=== PATIENT | female | born 1975 | race Caucasian/White ===

== ENCOUNTER → 2017-01-07 | Outpatient (CLI) | payer MEDICARE, OTHER ==
--- NOTE | 2017-01-07 07:35 | MR ---
MRI CERVICAL SPINE: CLINICAL HISTORY: Cervical spine radiculitis and DDD per order. Headache with neck pain causing right arm pain or weakness for 3 years per patient. TECHNIQUE: Multiplanar, multisequence imaging of the cervical spine is performed without IV contrast. COMPARISON: None. FINDINGS: Sagittal images of the cervical spine show the craniocervical junction to appear within nor mal limits. The cervical and upper thoracic spinal cord is normal in caliber and signal. There is mi ld AP diameter lost due to anterior indentation from disc herniation C6-C7 level on sagittal image 6. Vertebral alignment is anatomic. The vertebral body and heights are normal. There is mild disc spac e narrowing with posterior disc herniations effacing anterior thecal sac at C5-C6 and C6-C7 level. Th e bone marrow signal intensity is within normal limits. No significant spurring is seen. Mild minimal mucosal thickening involving visualized wall of the inferior right sphenoid sinus is noted on sagitt al image 12. Axial images show the C2-C3 level to appear within normal limits. Axial images at C3-C4 level show mild bilateral neural foraminal narrowing due to mild uncovertebral facet degenerative changes bilaterally. Axial images at C4-C5 level show uncovertebral facet degenerative changes bilaterally causing mild bi lateral neural foraminal narrowing. Spinal canal is preserved. Axial images at C5-C6 level show broad-based posterior disc protrusion effacing anterior thecal sac u p to ventral surface of spinal cord and causing moderate right and mild to moderate left-sided neural foraminal narrowing near axial image 23. Axial images at C6-C7 level show broad-based posterior disc protrusion effacing anterior thecal sac u p to ventral surface of spinal cord which is slightly flattened and causing mild to moderate left mark ed neural foraminal narrowing. Right-sided neural foramen is patent. Axial images at C7-T1 level are felt within normal limits. There is 1 cm T2 hyperintense lesion lateral left neck likely within lateral thyroid gland on axial i mage 17 that warrants follow-up at level of C6 vertebra. Suspected thyroid gland is somewhat small in size. IMPRESSION: 1. Multilevel degenerative changes in the cervical spine as detailed above most prominent at C5-C6 an d C6-C7 levels. 2. Suspected 1 cm left thyroid nodule in small size thyroid gland, follow-up thyroid ultrasound advis ed to further evaluate.
== END | disposition home or self-care (01) ==
LOC: RADMRIMAIN 06:34
PROVIDERS: ATTEND Pain Medicine Interventional Pain Medicine
DX: M47.22 Other spondylosis with radiculopathy, cervical region (principal)
CPT/HCPCS: 72141

== ENCOUNTER → 2018-05-08 | Outpatient (CLI) | payer MEDICARE, OTHER ==
--- NOTE | 2018-05-08 18:20 | CT ---
EXAMINATION TYPE: CT lumbar spine wo con DATE OF EXAM: 05/08/2018 10:16 AM COMPARISON: MR lumbar spine 06/01/2014 HISTORY: Low back pain CT DLP: 1883.8 mGycm Automated exposure control for dose reduction was used. TECHNIQUE: Unenhanced CT of the lumbar spine was performed. Bone and soft tissue window settings are submitted as well as coronal and sagittal reconstructions. FINDINGS: There is a very mild (grade 1) anterolisthesis of L3 on L4. There is surgical fixation of t he L4-S1 vertebral bodies with pedicular screws and fixation rods appearing appropriately placed. No hardware fracture is identified. Vertebral body heights are maintained. No evidence of acute fracture of the lumbar spine. Surgical resection of posterior elements at L4 and L5 are seen. There is a fat attenuated multilobulated lesion of the left adrenal gland appearing at the 2.7 cm. 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 Gallbladder is surgically absent. L1-L2: Normal disc space height. No disc herniation protrusion or central stenosis. No facet joint arthropathy. No evidence for foraminal encroachment. L2-L3: Normal disc space height. No disc herniation protrusion or central stenosis. No facet joint arthropathy. No evidence for foraminal encroachment. L3-L4: There is slight disc uncovering from the mild anterolisthesis. There is also facet arthropathy and a broad-based disc bulge creating mild bilateral neural foraminal narrowing and mild spinal julia l stenosis. L4-L5: A very small broad-based disc bulge is seen without spinal canal stenosis nor neural foraminal narrowing. Postsurgical changes with resection of the posterior elements is present. L5-S1: There is a left lateral posterior osteophyte projecting from the L5 vertebrae into the neural foramen creating severe left neural foraminal narrowing in combination with facet arthropathy. There is no right neural foraminal narrowing or spinal canal stenosis. Resection of the posterior elements is seen. IMPRESSION: 1. Posterior osteophyte projecting from the L5 vertebral body into the neural foramen creating severe left neural foraminal narrowing in combination with facet arthropathy. 2. No evidence of hardware fracture or hardware malalignment. 3. Grade 1 anterolisthesis of L3 on L4 with disc uncovering and a broad-based disc bulge resulting in mild bilateral neural foraminal narrowing and mild spinal canal stenosis.
== END | disposition home or self-care (01) ==
LOC: RADCTMAIN 09:13
PROVIDERS: ATTEND Psychiatry & Neurology Neurology
DX: M99.73 Connective tissue and disc stenosis of intervertebral foramina of lumbar region (principal); M43.16 Spondylolisthesis, lumbar region; M48.061 Spinal stenosis, lumbar region without neurogenic claudication; M46.96 Unspecified inflammatory spondylopathy, lumbar region
CPT/HCPCS: 72131

== ENCOUNTER → 2018-06-21 | Outpatient (CLI) | payer MEDICARE, OTHER | END | disposition home or self-care (01) | LOC: LABWHC1 11:28 | PROVIDERS: ATTEND Psychiatry & Neurology Pain Medicine | DX: M79.7 Fibromyalgia (principal); G89.4 Chronic pain syndrome; Z79.899 Other long term (current) drug therapy ==

== ENCOUNTER → 2018-06-23 | Outpatient (CLI) | payer MEDICARE, OTHER ==
[2018-06-23 12:54] LABS: Appearance,Urine Cloudy (Clear); Bacteria,Urine Rare /hpf; Bilirubin,Urine Negative (Negative); Blood,Urine Small (Negative); Color,Urine Yellow; Glucose,Urine (UA) 1+ (Negative); Ketones,Urine Negative (Negative); Leukocyte Esterase,Urine Negative (Negative); Mucus,Urine Few /hpf; Nitrite,Urine Negative (Negative); Protein,Urine Trace (Negative); RBC,Urine 3 /hpf (0-5); Specific Gravity,Urine 1.021 (1.001-1.035); Squamous Epithelial Cell,Urine 4 /hpf (0-4); Urobilinogen,Urine <2.0 mg/dL (<2.0); WBC,Urine 2 /hpf (0-5)
[2018-06-23 13:35] LABS: HCT 43.9 % (34.0-46.0); HGB 14.6 gm/dL (11.4-16.0); MCH 32.7 pg (25.0-35.0); MCHC 33.3 g/dL (31.0-37.0); MCV 98.2 fL (80.0-100.0); Mean Platelet Volume 7.5; Platelet Count 291 k/uL (150-450); RBC 4.47 m/uL (3.80-5.40); RDW 12.5 % (11.5-15.5); WBC 10.3 k/uL (3.8-10.6)
[2018-06-23 15:44] LABS: Erythrocyte Sedimentation Rate 13 mm/hr (0-20)
[2018-06-23 19:12] LABS: Albumin 4.4 g/dL (3.80-4.90); Anion Gap 8.4 mmol/L (4.00-12.00); C Reactive Protein 0.4 mg/dL (0.0-0.8); Calcium 9.2 mg/dL (8.7-10.3); Carbon Dioxide 23.6 mmol/L (21.6-31.8); Globulin 2.2 g/dL (2.1-3.7); Magnesium 1.7 mg/dL (1.5-2.4); Potassium 3.9 mmol/L (3.5-5.5); Total Bilirubin 0.4 mg/dL (0.3-1.2); Total Protein 6.6 g/dL (6.2-8.2)
[2018-06-23 20:18] LABS: Hemoglobin A1C 6.8 % (4.0-6.0)
[2018-06-23 20:30] LABS: Cyclic Citrullinated Pep IgG NEGATIVE (NEGATIVE); DNA Double-Stranded NEGATIVE (NEGATIVE); RNP <0.2 AI; Scleroderma SC-70 Ab <0.2 AI
[2018-06-25 14:01] LABS: Histone Antibody 0.5 UNITS (<1.0)
== END | disposition home or self-care (01) ==
LOC: LABWHC1 11:40
PROVIDERS: ATTEND Psychiatry & Neurology Pain Medicine
DX: G89.4 Chronic pain syndrome (principal); M79.7 Fibromyalgia; Z79.899 Other long term (current) drug therapy
CPT/HCPCS: 36415; 80053; 81001; 82306; 82550; 83036; 83516; 83519; 83735; 84207; 84425; 84446; 84590; 84591; 84597; 85027; 85652; 86038; 86140; 86200; 86225; 86235

== ENCOUNTER 2018-11-01 19:32 | Emergency (ER) | payer MEDICARE, OTHER ==
[2018-11-01 19:37] VITALS: BP 147/95; PULSE 120; RESP 18; TEMP 98.2
[2018-11-01] MEDS ORDERED: methylPREDNISolone SOD SUCCI 125 MG/2 ML VIAL IM ONE (20:04)
[2018-11-01] MEDS ORDERED: MORPHINE SULFATE 4 MG/ML SYRINGE IM STA (20:04)
[2018-11-01] MEDS ORDERED: CYCLOBENZAPRINE 10MG STARTER 3 TAB BTL PO STA (20:05)
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
--- NOTE | 2018-11-01 21:42 | XR ---
EXAMINATION TYPE: XR lumbar spine 2 or 3V DATE OF EXAM: 11/01/2018 CLINICAL HISTORY: Fall injury today with low back pain. TECHNIQUE: Frontal and lateral images of the lumbar spine are obtained. COMPARISON: CT lumbar spine May 08, 2018 FINDINGS: There are 5 lumbar type vertebral bodies redemonstrated. The lumbar spine shows stable al ignment without evidence of acute fracture or dislocation. There is slight grade 1 anterolisthesis of L3 on L4 redemonstrated. There is persistent mild to moderate disc space narrowing at L5-S1 level. T here are persistent posterior intrapedicular rods and screws bilaterally at L4-S1 levels. Vertebral b deborah heights and disc space heights otherwise are maintained. Cholecystectomy clips in the overlying s oft tissue are redemonstrated. IMPRESSION: No acute fracture or dislocation is seen in the lumbar spine.
[2018-11-01] MEDS ORDERED: ACET/COD 300 MG/30 MG STARTER PACK 6 TAB BTL PO STA (21:43)
== END 2018-11-01 21:50 | disposition home or self-care (01) ==
LOC: EC 19:32
DX: M54.42 Lumbago with sciatica, left side (principal); J44.9 Chronic obstructive pulmonary disease, unspecified; F41.9 Anxiety disorder, unspecified; F17.200 Nicotine dependence, unspecified, uncomplicated; Z98.890 Other specified postprocedural states; Z98.51 Tubal ligation status; Z79.899 Other long term (current) drug therapy; Z79.891 Long term (current) use of opiate analgesic; Z88.5 Allergy status to narcotic agent; Z88.6 Allergy status to analgesic agent; W54.1XXA Struck by dog, initial encounter; W18.39XA Other fall on same level, initial encounter; Y92.017 Garden or yard in single-family (private) house as the place of occurrence of the external cause; Y93.89 Activity, other specified
CPT/HCPCS: 72100; 99284; 96372 ×2; J2270; J2930

== ENCOUNTER 2019-01-20 19:53 | Emergency (ER) | payer MEDICARE, OTHER ==
--- NOTE | 2019-01-20 22:47 | US ---
EXAM: US Right Breast, Limited CLINICAL HISTORY: Pain TECHNIQUE: Limited real time ultrasound of the right breast with image documentation, including axilla when performed. COMPARISON: No relevant prior studies available. FINDINGS: Right breast: Heterogeneous retroareolar collection measuring 6.4 cm x 3.5 x 2.4 cm. Has poorly defined margins . This of uncertain etiology. The possibility of an abscess is not excluded. There is minimal rounding vascularity but no significant hyperemia suggested. IMPRESSION: Findings suspicious for retroareolar abscess. Other etiology is not excluded ASSESSMENT: BI-RADS 3
[2019-01-20 23:39] VITALS: BP 147/92; PULSE 85; RESP 18; TEMP 98.1
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
== END 2019-01-21 00:29 | disposition home or self-care (01) ==
LOC: EC 19:53
DX: N64.4 Mastodynia (principal); J44.9 Chronic obstructive pulmonary disease, unspecified; I10 Essential (primary) hypertension; F17.200 Nicotine dependence, unspecified, uncomplicated; Z79.891 Long term (current) use of opiate analgesic; Z79.899 Other long term (current) drug therapy; Z88.5 Allergy status to narcotic agent; Z88.6 Allergy status to analgesic agent
CPT/HCPCS: 99283

== ENCOUNTER → 2019-01-28 | Outpatient (CLI) | payer MEDICARE, OTHER ==
[2019-01-28 09:38] VITALS: BP 135/87; PULSE 84; RESP 18; TEMP 98.3; BMI 40.8
--- NOTE | 2019-01-28 10:17 | P.GSHP ---
History of Present Illness H&P Date: 01/28/19 Chief Complaint: swelling right breast The patient is a 43 year old white female who noted a lump in her breast 01-20-19. She states it has increased in size and is more tender. He has no fever or chills. She had an ultrasound performed on , this revealed a heterogeneous actual areola collection measuring 6.4-3.5 cm with poorly defined margins. The possibility of an abscess was not excluded. She denies any real trauma to this area. Has no nipple discharge or changes. Increase has no skin changes of concern. The patient 01-25-19 complaining of some swelling in her right upper extremity of her elbow. The patient had a ultrasound performed which did not reveal an upper extremity DVT. The swelling has since subsided. She was started on an antibiotic, Keflex. Does have a sunburn on her upper extremities at this time. She has not had any breast trauma specifically nor has she had any signs of her breasts. She does have a tattoos on breast which were placed in 2008 Family History: 1. mother: cervical 2. patient cervical 3. maternal aunt: breast Hormonal history: Menarche:8 1 stillorn, breast fed: no, first born at 18 periods irregular BCP: none Hormones: none surgical history: 1. gallbaldder 2. tubals 3. 4. ablation 5. LEEP 6. most of teeth pulled 7. back surgery Medical history: 1. asthma 2. depression Social History: smoke: 1/PPD 32 year alcohol: none drugs: none - Constitutional Constitutional: Reports sweats - EENT Eyes: denies blurred vision, denies pain Ears: deny: decreased hearing, tinnitus Ears, nose, mouth and throat: Denies headache, Denies sore throat - Breasts Breasts: bilateral: as per HPI - Cardiovascular Cardiovascular: Reports irregular heart beat - Respiratory Comment: smoker, asthma - Gastrointestinal Gastrointestinal: Denies abdominal pain, Denies diarrhea, Denies nausea, Denies vomiting - Genitourinary (Female) Genitourinary: Denies dysuria, Denies hematuria - Menstruation Menstruation: Reports cycle variable - Musculoskeletal Comment: arthritis Musculoskeletal: Reports myalgias - Integumentary Comment: multiple tattoos - Neurological Comment: tingling in fingers - Psychiatric Psychiatric: Reports depression - Endocrine Endocrine: Reports weight change - Hematologic/Lymphatic Comment: none - Allergic/Immunologic Allergic/Immunologic: Reports as per HPI Past Medical History Past Medical History: Asthma, COPD Additional Past Medical History / Comment(s): arrhythmia, History of Any Multi-Drug Resistant Organisms: None Reported Past Surgical History: Back Surgery, Tubal Ligation Past Psychological History: Anxiety Smoking Status: Current every day smoker Past Alcohol Use History: None Reported Past Drug Use History: None Reported Medications and Allergies Home Medications Medication Instructions Recorded Confirmed Type Cephalexin [Keflex] 500 mg PO Q6HR #28 cap 01/25/19 01/28/19 Rx Melatonin 5 mg PO HS 01/25/19 01/28/19 History diphenhydrAMINE [Benadryl] 25 mg PO HS 01/25/19 01/28/19 History Allergies Allergy/AdvReac Type Severity Reaction Status Date / Time ibuprofen [From Motrin] Allergy Rash/Hives Verified 01/28/19 09:38 morphine Allergy migraines Verified 01/28/19 09:38 Surgical - Exam Vital Signs Temp Pulse Resp BP Pulse Ox 98.3 F 84 18 135/87 94 L 01/28/19 09:32 01/28/19 09:32 01/28/19 09:32 01/28/19 09:32 01/28/19 09:32 BMI 40.9 - General obese - Eyes normal ocular movement - ENT no hearing loss, no congestion - Neck no masses, trachea midline - Respiratory normal expansion, normal respiratory effort, clear to auscultation - Cardiovascular Rhythm: regular Heart Sounds: normal: S1, S2 - Abdomen Abdomen: soft, non tender, no guarding, no rigid, no rebound - Integumentary multiple tattoos - Neurologic no disoriented, no combative - Musculoskeletal normal gait, normal posture - Psychiatric oriented to time, oriented to person, oriented to place, speech is normal, memory intact breast exam: Breasts: Right breast: Multi-positional exam very large breast D, there is an area of increased swelling posterior to the nipple areola complex, the patient has no other dominant masses or nodules of concern, no erythema, she does have tattoos on both breast Right axilla: No adenopathy of concern Left breast: Multi-positional exam fibrocystic changes, no dominant masses or nodules of concern Left axilla: No adenopathy of concern Results Ultrasound reviewed Assessment and Plan Assessment: Impression: 1. Mass right breast 2. Fibrocystic breast changes 3. Sunburn 4. Asthma 5. Prior history of depression 6. Borderline arthritis 7. obesity . Personal history of cervical cancer 9. Family history of cancer 10. Recent swelling of the right upper extremity The patient was ultrasound was reviewed with radiology, there appears to be fluid collection posterior to the nipple areola complex. It was recommended that we attempt an aspiration of this. This appears to be purulent fluid consider drainage in the operating room. The patient understands the risks and benefits and wishes to proceed. She has no longer swelling of the right upper extremity. Her most recent ultrasound of the right upper extremity vasculature did not reveal a DVT. Plan: 1. Attempted aspiration of the right breast 2. Medical management of medical problems 3. Continue antibiotic Cc: Dr. Peralta
--- NOTE | 2019-01-28 10:31 | P.PCN ---
Date of Procedure: 01/28/19 Preoperative Diagnosis: Mass posterior right nipple areola complex Postoperative Diagnosis: same Procedure(s) Performed: Drainage of fluid collection posterior to the right nipple complex Anesthesia: local Surgeon: Vee Alexander Estimated Blood Loss (ml): 0 Condition: stable Disposition: same day Indications for Procedure: mass right breast Operative Findings: sero-purolent fluid Description of Procedure: The patient is a 43-year-old white female who presents with an area of increased mass posterior to the right nipple areola complex. There is a remote history of questionable trauma however it appears that the trauma simply brought the area to the patient's attention and she noticed a lump in this region. Ultrasound was consistent with hematoma/abscess. Impression was had with the patient regarding aspiration the patient wished an attempt at this. Risk and benefits were discussed with the patient and her . The area of concern was prepped using Betadine. 1% lidocaine was used to anesthetize the area of concern. An 18-gauge needle on a 20 mL syringe was inserted into the mass. 5 mL of seropurulent fluid was obtained. The fluid was sent for cultures. The patient will return next week. She is presently on Keflex.
== END ==
LOC: WWCWWP 09:19
PROVIDERS: ATTEND Surgery
DX: N64.9 Disorder of breast, unspecified (principal)
CPT/HCPCS: 87070; 87075; 87205

== ENCOUNTER 2019-02-01 07:51 | Day surgery (SDC) | payer MEDICARE, OTHER ==
[~2019-02-01 07:51] MED LIST: DEXAMETHASONE SOD PHOSPHATE 10 MG/ML 1 ML VIAL IV ONE; HEPARIN SODIUM,PORCINE 5,000 UNIT/ML 1 ML VIAL SQ ONE; LACTATED RINGERS 1,000 ML IV SCH; MIDAZOLAM 2 MG/2 ML VIAL IV PRN; ONDANSETRON 4 MG/2 ML VIAL IVP ONE; Pre Op ABX Message 1 EACH MISC MISCELLANE ONE; SCOPOLAMINE 1.5MG/72HR PATCH TRANSDERM ONE; fentaNYL (PF) 50 MCG/ML 2 ML AMP IV PRN
[2019-02-01] MEDS ORDERED: HEPARIN SODIUM,PORCINE 5,000 UNIT/ML 1 ML VIAL SQ ONE (09:53)
[2019-02-01] MEDS ORDERED: ceFAZolin 2 GM in SODIUM CHLORIDE 0.9% 100 ML IVPB ONE (09:54)
[2019-02-01] MEDS ORDERED: metroNIDAZOLE-NS PMX 500 MG in SALINE 1 100ML.BAG IVPB STA (09:55)
[2019-02-01] MEDS ORDERED: ceFAZolin IN SWFI 2 GM/20 ML SYRINGE IVP STA (09:56)
[2019-02-01] MEDS ORDERED: KETAMINE 10 MG/ML 20 ML VIAL ONE (10:13)
[2019-02-01] MEDS ORDERED: MIDAZOLAM 2 MG/2 ML VIAL ONE (10:13)
[2019-02-01] MEDS ORDERED: LIDOCAINE 1% INJ 10MG/ML (20 ML MDV) ONE (10:13)
[2019-02-01] MEDS ORDERED: SUCCINYLCHOLINE CHLORIDE 100 MG/5 ML SYR IV ONE (10:13)
[2019-02-01] MEDS ORDERED: PROPOFOL 10 MG/ML 20 ML VIAL IV ONE (10:13)
[2019-02-01] MEDS ORDERED: fentaNYL (PF) 50 MCG/ML 2 ML AMP ONE (10:13)
[2019-02-01] MEDS ORDERED: ALBUTEROL INHALER 60 PUFF/8 GM INHALER INHALATION ONE (10:13)
[2019-02-01] MEDS ORDERED: SODIUM CHLORIDE 0.9% 50 ML with ceFAZolin 2,000 MG IV ONE ×2 (10:17)
--- NOTE | 2019-02-01 11:17 | P.OP ---
Date of Procedure: 02/01/19 Preoperative Diagnosis: Abscess right breast Postoperative Diagnosis: Same Procedure(s) Performed: Incision and drainage abscess right breast Anesthesia: MAU Surgeon: Vee Alexander Estimated Blood Loss (ml): 5 IV fluids (ml): 500 Pathology: other (Wall of the abscess cavity) Condition: stable Disposition: same day Indications for Procedure: Abscess right breast posterior to the nipple areolar complex Operative Findings: Large abscess cavity approximately 8 x 9 cm Description of Procedure: The patient is a 43-year-old white female who presented to the emergency department with a fullness in her right breast. At that time she had no fever and no drainage from the breast. There was concern that she may have a hematoma associated some history of trauma to the area versus an abscess. She was subsequently seen in the office. In the office and aspiration did reveal some purulence was sent for cultures and she was started on antibiotics. She presents today with persistent fullness in the area for incision and drainage. The patient was given a dose of IV Kefzol as well as IV Flagyl. Risks and benefits of procedure were clearly discussed with the patient and her . They wish to proceed with I&D in the operating room. The patient was taken to the operative suite and following induction of anesthesia incision was made in the circumareolar region. Dissection was performed down to the large plus which revealed an abscess cavity. The cavity was approximately 3 cm x 2 cm. There is minimal purulent fluid in the cavity, cultures were obtained. 3 L of warm saline were used to irrigate the area. No active bleeding was identified. The edge of the incision is a small vessel and this was cauterized using the electrocautery device. Following this the wound was packed using moist Kerlix. The patient tolerated the procedure in stable condition. She will be discharged home on lax and Flagyl. Infectious disease consult will be obtained. The patient will be recommended to follow with me in the office tomorrow for packing change.
--- NOTE | 2019-02-01 11:20 | P.DS ---
Providers Attending physician: Vee Alexander Primary care physician: Keyon Peralta Plan - Discharge Summary New Discharge Prescriptions: No Action diphenhydrAMINE [Benadryl] 25 mg PO HS Melatonin 5 mg PO HS Cephalexin [Keflex] 500 mg PO Q6HR #28 cap Discharge Medication List Cephalexin [Keflex] 500 mg PO Q6HR #28 cap 01/25/19 [Rx] Melatonin 5 mg PO HS 01/25/19 [History] diphenhydrAMINE [Benadryl] 25 mg PO HS 01/25/19 [History] Follow up Appointment(s)/Referral(s): Vee Alexander MD [STAFF PHYSICIAN] - 1-2 Days Activity/Diet/Wound Care/Special Instructions: do not drive today may shower after 24 hours Discharge Disposition: HOME WITH HOME HEALTH SERVICES
[2019-02-01] MEDS ORDERED: HYDROmorphone 1 MG/ML 1 ML SYRINGE IVP ONE ×5 (11:30→12:18)
[2019-02-01 11:52] VITALS: TEMP 98.1
[2019-02-01] MEDS ORDERED: MEPERIDINE 50 MG/ML SYRINGE IVP ONE (11:56)
[2019-02-01 12:40] VITALS: RESP 16
[2019-02-01 13:41] VITALS: BP 116/78; PULSE 88
== END 2019-02-01 14:08 | disposition home health service (06) ==
LOC: OR 07:51
PROVIDERS: ATTEND Surgery
DX: N61.1 Abscess of the breast and nipple (principal); L92.9 Granulomatous disorder of the skin and subcutaneous tissue, unspecified; F32.9 Major depressive disorder, single episode, unspecified; J44.9 Chronic obstructive pulmonary disease, unspecified; I49.9 Cardiac arrhythmia, unspecified; F41.9 Anxiety disorder, unspecified; F17.210 Nicotine dependence, cigarettes, uncomplicated; M19.90 Unspecified osteoarthritis, unspecified site; E66.9 Obesity, unspecified; Z68.41 Body mass index [BMI] 40.0-44.9, adult; Z90.49 Acquired absence of other specified parts of digestive tract; Z98.51 Tubal ligation status; Z97.2 Presence of dental prosthetic device (complete) (partial); Z79.899 Other long term (current) drug therapy; Z88.6 Allergy status to analgesic agent; Z88.5 Allergy status to narcotic agent
CPT/HCPCS: 81025; 88304; 87070; 87205; 87075; 10060; J2250; J1644; J1100; J2175; J2405; J0690; J2001; J3010; J1170; J0330; J2704

== ENCOUNTER → 2019-02-02 | Outpatient (CLI) | payer MEDICARE, OTHER ==
[2019-02-02 15:16] VITALS: BP 132/81; PULSE 75; RESP 18; TEMP 98.1; BMI 39.4
--- NOTE | 2019-02-02 15:25 | P.PN ---
Progress Note - Text Progress Note Date: 02/02/19 Patient is postop day #1 I&D of right breast abscess. She presents for packing to be changed. Although she has tenderness at the site she has no fever no chills no erythema of concern Lungs: Wheezing at the bases Heart: S1-S2 Incision: clean and dry, Packing was changed, there is no evidence of any purulence No cellulitis Impression: 1. Patient doing well postop day #1 I&D of abscess right breast 2. nicotine dependance We have discussed with the patient again the importance of stopping smoking. She understands this and is trying to do so. Plan: 1. was taught how to change the packing patient left packing changed daily 2. Home health care will be visiting the patient to help with any concerns 3. Continue antibiotics 4. follow up in one week CC: Dr. Peralta
== END | disposition home or self-care (01) ==
LOC: WWCWWP 14:32
PROVIDERS: ATTEND Surgery
DX: Z53.9 Procedure and treatment not carried out, unspecified reason (principal)

== ENCOUNTER → 2019-02-10 | Outpatient (CLI) | payer MEDICARE, OTHER ==
[2019-02-10 12:05] VITALS: BP 142/92; PULSE 76; RESP 18; TEMP 98; BMI 40.8
--- NOTE | 2019-02-10 12:23 | P.PN ---
Progress Note - Text Progress Note Date: 02/10/19 Patient status post I&D right breast abcess on 01-28-19. She is doing well at this time. She did develop a yeast infection in her groins for which Diflucan is been ordered. She has no problems with any fever or chills. No erythema in the breast. She is doing well. Examination of the breasts reveals the area of incision is clean and dry there is no erythema Packing was changed minimal drainage Examination of the groin area does reveal what appears to be a yeast infection Impression: 1. Resolving abscess right breast 2. Increased infection groin area 2. Patient has completed a course of Keflex and Flagyl Plan: 1. Continue packing seems 2. Diflucan 3. Follow-up in 2 weeks CC: Dr. Peralta
== END | disposition home or self-care (01) ==
LOC: WWCWWP 11:53
PROVIDERS: ATTEND Surgery
DX: Z53.9 Procedure and treatment not carried out, unspecified reason (principal)

== ENCOUNTER → 2019-02-25 | Outpatient (CLI) | payer MEDICARE, OTHER ==
[2019-02-25 15:49] VITALS: BP 139/95; PULSE 111; RESP 20; TEMP 98.5; BMI 39.4
--- NOTE | 2019-02-25 16:01 | P.PN ---
Subjective Progress Note Date: 02/25/19 Patient status post I&D right breast abcess on 01-28-19. She is doing well at this time. She did develop a yeast infection in her groins for which Diflucan was ordered. She has no problems with any fever or chills. No erythema in the breast. She is doing well. Area of packing has decreased. After the Diflucan the groin infection has resolved. Physical exam: Lungs: Clear Heart: Regular rate and rhythm Right breast: Packing removed area is clean and dry Impression: 1. Resolving abscess cavity right breast 2. Resolved according infection Plan: 1. Continue packing 2. Follow-up in 1 month 3. Bilateral mammogram after follow-up Cc: Objective - Vital Signs Vital signs: Vital Signs Temp 98.5 F 02/25/19 15:42 Pulse 111 H 02/25/19 15:42 Resp 20 02/25/19 15:42 BP 139/95 02/25/19 15:42 Pulse Ox 92 L 02/25/19 15:42 Intake & Output 02/24/19 02/25/19 02/25/19 18:59 06:59 18:59 Weight 104.326 kg
== END | disposition home or self-care (01) ==
LOC: WWCWWP 14:54
PROVIDERS: ATTEND Surgery
DX: Z53.9 Procedure and treatment not carried out, unspecified reason (principal)

== ENCOUNTER → 2019-04-14 | Outpatient (CLI) | payer MEDICARE, OTHER ==
[2019-04-14 16:07] VITALS: BP 120/83; PULSE 87; RESP 18; TEMP 98.3; BMI 39.1
--- NOTE | 2019-04-14 16:25 | P.PN ---
Progress Note - Text Progress Note Date: 04/14/19 Patient status post I&D right breast abcess on 01-28-19. She is doing well at this time. She did develop a yeast infection in her groins for which Diflucan was ordered this has completely resolved. She has no problems with any fever or chills. No erythema in the breast, she does have some intermittent shooting pain in the location where the abscess was located. She is doing well. There was no longer open her able to be packed. Physical exam: Lungs: Clear Heart: Regular rate and rhythm Right breast: The area of the abscess is now healed over, fibrocystic changes noted no dominant mass or nodule of concern, the right breast has some nipple discharge which is creamy in nature Right axilla: No adenopathy of concern Left breast: Multiple positional exam no dominant mass or notches of concern Left axilla: No adenopathy of concern Impression: 1. Resolved abscess right breast 2. Persistent creamy discharge right nipple with palpation Plan 1. Bilateral mammogram 2. Follow-up after mammogram CC: DR. Peralta
== END ==
LOC: WWCWWP 15:26
PROVIDERS: ATTEND Surgery
DX: N64.52 Nipple discharge (principal)
CPT/HCPCS: 87070; 87205

== ENCOUNTER → 2019-04-19 | Outpatient (CLI) | payer MEDICARE, OTHER ==
[2019-04-19 11:48] VITALS: BP 141/86; PULSE 93; RESP 18; TEMP 98.2; BMI 36.6
--- NOTE | 2019-04-19 12:26 | P.PN ---
Subjective Progress Note Date: 04/19/19 Nadia is a 43-year-old white female who is status post incision and drainage of an area of abscess behind the nipple areolar complex on 72. She has done well until recently when she had some increased drainage from the area and was seen in the office. The incision for the I&D has healed over but she had some milky substance draining from the nipple. Cultures were obtained and these revealed gram-positive cocci. The patient states that since she was seen last week she has some fullness which is increased behind the nipple areolar complex. She has not had any fever or chills. Family History: 1. mother: cervical 2. patient cervical 3. maternal aunt: breast Hormonal history: Menarche:8 1 stillorn, breast fed: no, first born at 18 periods irregular BCP: none Hormones: none surgical history: 1. gallbaldder 2. tubals 3. 4. ablation 5. LEEP 6. most of teeth pulled 7. back surgery Medical history: 1. asthma 2. depression Social History: smoke: 1/PPD 32 year alcohol: none drugs: none - Constitutional Constitutional: Reports sweats - EENT Eyes: denies blurred vision, denies pain Ears: deny: decreased hearing, tinnitus Ears, nose, mouth and throat: Denies headache, Denies sore throat - Breasts Breasts: bilateral: as per HPI - Cardiovascular Cardiovascular: Reports irregular heart beat - Respiratory Comment: smoker, asthma - Gastrointestinal Gastrointestinal: Denies abdominal pain, Denies diarrhea, Denies nausea, Denies vomiting - Genitourinary (Female) Genitourinary: Denies dysuria, Denies hematuria - Menstruation Menstruation: Reports cycle variable - Musculoskeletal Comment: arthritis Musculoskeletal: Reports myalgias - Integumentary Comment: multiple tattoos - Neurological Comment: tingling in fingers - Psychiatric Psychiatric: Reports depression - Endocrine Endocrine: Reports weight change - Hematologic/Lymphatic Comment: none - Allergic/Immunologic Allergic/Immunologic: Reports as per HPI Past Medical History Past Medical History: Asthma, COPD Additional Past Medical History / Comment(s): arrhythmia, History of Any Multi-Drug Resistant Organisms: None Reported Past Surgical History: Back Surgery, Tubal Ligation Past Psychological History: Anxiety Smoking Status: Current every day smoker Past Alcohol Use History: None Reported Past Drug Use History: None Reported Medications and Allergies Home Medications Medication Instructions Recorded Confirmed Type Melatonin 5 mg PO HS 01/25/19 01/28/19 History diphenhydrAMINE [Benadryl] 25 mg PO HS 01/25/19 01/28/19 History Allergies Allergy/AdvReac Type Severity Reaction Status Date / Time ibuprofen [From Motrin] Allergy Rash/Hives Verified 01/28/19 09:38 morphine Allergy migraines Verified 01/28/19 09:38 Objective - Vital Signs Vital signs: Vital Signs Temp 98.2 F 04/19/19 11:44 Pulse 93 04/19/19 11:44 Resp 18 04/19/19 11:44 BP 141/86 04/19/19 11:44 Pulse Ox 95 04/19/19 11:44 Intake & Output 04/18/19 04/19/19 04/19/19 18:59 06:59 18:59 Weight 96.615 kg - Exam BMI 36.6 - Constitutional General appearance: Present: obese - EENT Eyes: Present: EOMI ENT: Present: hearing grossly normal - Neck Neck: Present: normal ROM - Respiratory Respiratory: bilateral: CTA - Cardiovascular Rhythm: regular Heart sounds: normal: S1, S2 - Integumentary Integumentary: Present: normal turgor - Psychiatric Psychiatric: Present: A&O x's 3, appropriate affect, intact judgment & insight - Additional findings Additional findings: Breasts: Examination of the periareolar area reveals some fullness which is approximately 3 cm in size posterior to the nipple areolar complex more on the medial aspect of the breast The patient continues to have some milky drainage from the nipple complex Assessment and Plan Assessment: Impression: 1. Increase fullness behind right nipple area complex with some creamy drainage from the right nipple 2. Questionable recurrent abscess right breast 3. Asthma 4. Depression 5. Smoking one pack per day for 32 years Plan: 1. Patient was given the option of attempted aspiration of the area and starting any antibiotics versus surgical I&D however at this time there is not a definite lesion that would benefit from going to the operating room 2. Ultrasound of the area of concern to see if there is a loculated collection of fluid 3. Patient at this time does not want any surgical intervention if it can be avoided and does not want to have this aspirated therefore start the patient on antibiotics and did an ultrasound. Patient understands the kids where she should come to the emergency room. DR. Peralta
== END | disposition home or self-care (01) ==
LOC: WWCWWP 11:32
PROVIDERS: ATTEND Surgery
DX: Z53.9 Procedure and treatment not carried out, unspecified reason (principal)

== ENCOUNTER → 2019-04-19 | Outpatient (CLI) | payer MEDICARE, OTHER ==
--- NOTE | 2019-04-19 14:37 | USB ---
Reason for exam: clinical finding. History: Patient history of other cancer. Family history of breast cancer in maternal grandmother. Benign excisional biopsy of the right breast, February 01, 2019. Physical Findings: Breast exam performed by Dr. Alexander. US Breast Limited RT Right limited breast ultrasound including focal area of concern, retroareolar and axilla demonstrates a 5.5 x 2.6 x 1.5cm mixed, vascular lesion at the posterior nipple and a 2.3 x 1.2cm prominent axilla node. Questionable hematoma, questionable recurrent abscess correlates with prior surgical findings. These results were verbally communicated with the patient and result sheet given to the patient on 04/19/19. ASSESSMENT: Suspicious, BI-RAD 4 RECOMMENDATION: Surgical consultation and ultrasound core biopsy of the right breast. (+/- FNA) Called Dr. Alexander with mammographic findings. Biopsy scheduled for 04/20/19 at 9:00. PRELIMINARY REPORT CALLED AND FAXED TO DR. ALEXANDER ON 04/19/19.
== END | disposition home or self-care (01) ==
LOC: RADUSWWP 12:38
PROVIDERS: ATTEND Surgery
DX: N60.01 Solitary cyst of right breast (principal)

== ENCOUNTER → 2019-04-20 | Day surgery (SDC) | payer MEDICARE, OTHER ==
[2019-04-20 09:06] VITALS: BMI 39.4
[2019-04-20 10:45] VITALS: BP 104/68; PULSE 65; RESP 16; TEMP 97.7
--- NOTE | 2019-04-20 15:50 | USB ---
EXAMINATION TYPE: US biopsy breast VAD RT DATE OF EXAM: 04/20/2019 CLINICAL HISTORY: N63, Right breast lump. Abscess TECHNIQUE: Ultrasound guided vaccuum assisted core biopsy of right breast. COMPARISON: Ultrasound 04/19/2019 FINDINGS: The ultrasound guided core biopsy procedure was explained to the patient. The risks, benefits, alternatives were discussed. An informed consent was then obtained. Timeout was performed. The patient was placed in supine positioning for imaging and for the procedure. The overlying skin was prepped with betadine and sterilely draped in usual sterile fashion. Lidocaine 1% was used as anesthetic into the skin and deeper breast tissue up to area of concern in the breast. The abscess aspiration was performed. A small skin bette was made with surgical scalpel. Under ultrasound guidance, a 12-gauge vacuum assisted biopsy device was used to obtain 3 core samples. A biopsy clip was left in lesion. A ribbon clip was utilized. Good hemostasis was obtained with direct pressure. Discharge instructions were discussed with the patient. The patient will follow up with the referring physician for results. Postprocedure mammogram: Patient is scheduled for early May mammography imaging. The post procedure mammogram was deferred until that time. The patient tolerated the procedure well without any immediate complication. The patient was discharged to home in stable condition. IMPRESSION: 1. Successful ultrasound guided biopsy right breast. Pathology Results: Benign RIGHT BREAST, ULTRASOUND GUIDED CORE BIOPSY: Scar with fat necrosis, fibrosis, inflammation and inflamed granulation tissue. Negative for malignancy. Recommendation Surgical consult of the right breast. (infection) MTDD
--- NOTE | 2019-04-20 15:52 | USB ---
EXAMINATION TYPE: US biopsy breast VAD RT, ultrasound abscess aspiration DATE OF EXAM: 04/20/2019 CLINICAL HISTORY: N63, Right breast lump. Abscess TECHNIQUE: Ultrasound guided vaccuum assisted core biopsy of right breast. COMPARISON: Ultrasound 04/19/2019 FINDINGS: The ultrasound guided aspiration procedure was explained to the patient. The risks, benefits, alternatives were discussed. An informed consent was then obtained. Timeout was performed. The patient was placed in supine positioning for imaging and for the procedure. The overlying skin was prepped with betadine and sterilely draped in usual sterile fashion. Lidocaine 1% was used as anesthetic into the skin and deeper breast tissue up to area of concern in the breast. The abscess aspiration was performed. Pus appearing aspirate was easily aspirated. There was incomplete collapse of the abscess. For this reason the requested biopsy was then performed. Please see breast biopsy dictation same date. Good hemostasis was obtained with direct pressure. Discharge instructions were discussed with the patient. The patient will follow up with the referring physician for results. Postprocedure mammogram: Patient is scheduled for early May mammography imaging. The post procedure mammogram was deferred until that time. The patient tolerated the procedure well without any immediate complication. The patient was discharged to home in stable condition. IMPRESSION: 1. Successful ultrasound guided abscess aspiration right breast. Pathology Results: Benign CORYNEBACTERIUM SPECIES ANAEROBIC GRAM POSITIVE COCCI ANAEROBIC GRAM POSITIVE COCCI #2 Recommendation Surgical consult of the right breast. (infection) MTDD
== END ==
LOC: RADUSWWP 08:39
PROVIDERS: ATTEND Surgery
DX: N61.1 Abscess of the breast and nipple (principal); N64.1 Fat necrosis of breast; N60.31 Fibrosclerosis of right breast; L92.8 Other granulomatous disorders of the skin and subcutaneous tissue; N63.10 Unspecified lump in the right breast, unspecified quadrant; Z88.6 Allergy status to analgesic agent; Z88.1 Allergy status to other antibiotic agents; Z88.5 Allergy status to narcotic agent
CPT/HCPCS: 19083; 10160; 88305; 87070; 87205; 87075; A4648; J2001; 76942

== ENCOUNTER → 2019-04-21 | Outpatient (CLI) | payer MEDICARE, OTHER ==
[2019-04-21 08:58] VITALS: BP 148/88; PULSE 76; RESP 18; TEMP 97.9; BMI 36.6
--- NOTE | 2019-04-21 08:59 | P.PN ---
Subjective Principal diagnosis: Right breast abscess Nadia is a 43-year-old white female who is status post incision and drainage of an area of abscess behind the nipple areolar complex on 7218. She has done well until recently when she had some increased drainage from the area and was seen in the office. The incision for the I&D has healed over but she had some milky substance draining from the nipple. Cultures were obtained and these revealed gram-positive cocci. The patient stated that since she was seen last week she has some fullness which is increased behind the nipple areolar complex. She has not had any fever or chills. An ultrasound was performed which revealed an abscess and she underwent ultrasound guided aspiration of the area. This was performed on . Plus-appearing aspirate was aspirated. There was incomplete collapse of the cavity. A biopsy was also performed. The patient since then states she has decreased discomfort in the breast and no further erythema or increase in the size of the area behind the nipple. She was started on Keflex. She now complains of some vaginal itching and the specimen given a prescription for Diflucan. Family History: 1. mother: cervical 2. patient cervical 3. maternal aunt: breast Hormonal history: Menarche:8 1 stillorn, breast fed: no, first born at 18 periods irregular BCP: none Hormones: none surgical history: 1. gallbaldder 2. tubals 3. 4. ablation 5. LEEP 6. most of teeth pulled 7. back surgery Medical history: 1. asthma 2. depression Social History: smoke: 1/PPD 32 year alcohol: none drugs: none - Constitutional Constitutional: Reports sweats - EENT Eyes: denies blurred vision, denies pain Ears: deny: decreased hearing, tinnitus Ears, nose, mouth and throat: Denies headache, Denies sore throat - Breasts Breasts: bilateral: as per HPI - Cardiovascular Cardiovascular: Reports irregular heart beat - Respiratory Comment: smoker, asthma - Gastrointestinal Gastrointestinal: Denies abdominal pain, Denies diarrhea, Denies nausea, Denies vomiting - Genitourinary (Female) Genitourinary: Denies dysuria, Denies hematuria - Menstruation Menstruation: Reports cycle variable, now complaining of vaginal itching after starting Keflex - Musculoskeletal Comment: arthritis Musculoskeletal: Reports myalgias - Integumentary Comment: multiple tattoos - Neurological Comment: tingling in fingers - Psychiatric Psychiatric: Reports depression - Endocrine Endocrine: Reports weight change - Hematologic/Lymphatic Comment: none - Allergic/Immunologic Allergic/Immunologic: Reports as per HPI Past Medical History Past Medical History: Asthma, COPD Additional Past Medical History / Comment(s): arrhythmia, History of Any Multi-Drug Resistant Organisms: None Reported Past Surgical History: Back Surgery, Tubal Ligation Past Psychological History: Anxiety Smoking Status: Current every day smoker Past Alcohol Use History: None Reported Past Drug Use History: None Reported Objective - Exam BMI 40.9 - Constitutional General appearance: Present: obese - EENT Eyes: Present: EOMI ENT: Present: hearing grossly normal - Neck Neck: Present: normal ROM - Respiratory Details: wheezing left base Respiratory: right: CTA - Cardiovascular Rhythm: regular Heart sounds: normal: S1, S2 - Integumentary Integumentary Comment(s): Right breast periareolar area has well-healed scar from previous I&D, and the lateral aspect of the periareolar region Steri-Strips are present where the abscess was aspirated The area of fullness behind in the periareolar complex has decreased The patient does not have erythema of this region Integumentary: Present: normal turgor - Musculoskeletal Musculoskeletal: Present: gait normal - Psychiatric Psychiatric: Present: A&O x's 3, appropriate affect, intact judgment & insight Assessment and Plan Assessment: Impression: 1. Fullness posterior to the right nipple areolar complex 2. Aspirated abscess right breast 3. Fibrocystic breast changes 4. Asthma 5.History of depression 6. Borderline arthritis 7. Obesity 8. Personal history of cervical cancer 9. Family history of cancer 10. Vaginal itching after starting Keflex 11. Patient on Keflex, cultures gram-positive cocci Plan: 1. Continue antibiotic 2. Diflucan 2 use infection 3. Follow-up in 1 week to follow progress 4. Follow up sooner if any questions or concerns 5. Medical management of medical conditions Cc: Dr. Peralta
== END ==
LOC: WWCWWP 08:35
PROVIDERS: ATTEND Surgery
DX: Z53.9 Procedure and treatment not carried out, unspecified reason (principal)

== ENCOUNTER → 2019-04-28 | Outpatient (CLI) | payer MEDICARE, OTHER ==
[2019-04-28 08:53] VITALS: BP 125/85; PULSE 109; RESP 18; TEMP 98.5; BMI 36.6
--- NOTE | 2019-04-28 09:41 | P.PN ---
Subjective Progress Note Date: 04/28/19 Principal diagnosis: CC: chronic Right breast abscessNadia is a 43-year-old white female who is status post incision and drainage of an area of abscess behind the right nipple areolar complex on 7218. She had done well until recently when noted some increased drainage from the area and was seen in the office on 04-14-19. The incision for the I&D has healed over but she had some milky substance draining from the nipple. Cultures were obtained and these revealed gram-positive cocci. The patient had an ultrasound-guided aspiration and a biopsy of the wall of the cyst. The pathology from 04/1819 revealed scar with fat necrosis, fibrosis, inflammation, negative for cancer. The patient's cultures revealed anaerobic gram-positive, many bacteria, and gram-positive bacilli. There was incomplete collapse of the cavity. The patient since then states she has decreased discomfort in the breast and no further erythema but increase in the size of the area of swelling behind the nipple. She was started on Keflex. She complained of some vaginal itching and was given a prescription for Diflucan, this has improved. She is not experiencing any fever or chills. Family History: 1. mother: cervical 2. patient cervical 3. maternal aunt: breast Hormonal history: Menarche:8 1 stillorn, breast fed: no, first born at 18 periods irregular BCP: none Hormones: none surgical history: 1. gallbaldder 2. tubals 3. 4. ablation 5. LEEP 6. most of teeth pulled 7. back surgery Medical history: 1. asthma 2. depression Social History: smoke: 1/PPD 32 year alcohol: none drugs: none - Constitutional Constitutional: Reports sweats - EENT Eyes: denies blurred vision, denies pain Ears: deny: decreased hearing, tinnitus Ears, nose, mouth and throat: Denies headache, Denies sore throat - Breasts Breasts: bilateral: as per HPI - Cardiovascular Cardiovascular: Reports irregular heart beat - Respiratory Comment: smoker, asthma - Gastrointestinal Gastrointestinal: Denies abdominal pain, Denies diarrhea, Denies nausea, Denies vomiting - Genitourinary (Female) Genitourinary: Denies dysuria, Denies hematuria - Menstruation Menstruation: Reports cycle variable, now complaining of vaginal itching after starting Keflex - Musculoskeletal Comment: arthritis Musculoskeletal: Reports myalgias - Integumentary Comment: multiple tattoos - Neurological Comment: tingling in fingers - Psychiatric Psychiatric: Reports depression - Endocrine Endocrine: Reports weight change - Hematologic/Lymphatic Comment: none - Allergic/Immunologic Allergic/Immunologic: Reports as per HPI Past Medical History Past Medical History: Asthma, COPD Additional Past Medical History / Comment(s): arrhythmia, History of Any Multi-Drug Resistant Organisms: None Reported Past Surgical History: Back Surgery, Tubal Ligation Past Psychological History: Anxiety Smoking Status: Current every day smoker Past Alcohol Use History: None Reported Past Drug Use History: None Reported Objective - Vital Signs Vital signs: Vital Signs Temp 98.5 F 04/28/19 08:49 Pulse 109 H 04/28/19 08:49 Resp 18 04/28/19 08:49 BP 125/85 04/28/19 08:49 Pulse Ox 96 04/28/19 08:49 Intake & Output 04/27/19 04/28/19 04/28/19 18:59 06:59 18:59 Weight 96.615 kg - Exam BMI 36.6 - Constitutional Constitutional Comment(s): BMI 36.6 General appearance: Present: obese - EENT Eyes: Present: EOMI, poor dentition ENT: Present: hearing grossly normal - Neck Neck: Present: normal ROM - Respiratory Details: Wheezing left lung base Respiratory: right: CTA - Cardiovascular Rhythm: regular Heart sounds: normal: S1, S2 - Gastrointestinal General gastrointestinal: Present: soft - Integumentary Integumentary Comment(s): tattoos Periareolar region on the right without erythema Integumentary: Present: normal turgor - Musculoskeletal Musculoskeletal: Present: gait normal - Additional findings Additional findings: right breasts: Examination of the periareolar region reveals approximately a 6 x 6 cm area of fullness behind the nipple areolar complex Multiple positional exam of the rest of the breast does not reveal any specific lesions of concern Right axilla: No adenopathy of concern Left breast: Multi-positional exam no dominant masses or nodules of concern, fibrocystic changes Left axilla approximately 1 x 1 cm cystic lesion in the axillary area which is tender to palpation Assessment and Plan Assessment: Impression: 1. Fullness posterior right nipple areolar complex/believed to be recurrent abscess 2. Fibrocystic breast changes 3. Asthma 4. History of Depression 5. Arthritis 6. Nicotine dependence 7. Personal history of cervical cancer 8. Vaginal itching 8 after started Keflex will give another dose of Diflucan 9. Patient has been on Keflex will continue antibiotics until surgery. We will recommend infectious disease consult 10. Left axillary cystic lesion which is increased in size and tender to palpation Plan: 1. Continue antibiotics 2. Repeat dose of Diflucan 3. Ultrasound of the right periareolar area if this is amiable to incision and drainage would recommend this in the operating room as ultrasound-guided drainage did not resolve the problem 4. Have again instructed patient and the benefits of stopping smoking 5. Left axillary cystic lesion to be excised Risk and benefits of the procedure discussed with the patient and her . The procedure will be scheduled in the near future. I had a phone conversation with Dr. Igor Lackey from infectious disease. He has recommended Diflucan 100 mg once a day for 7 days for the yeast infection. Additionally he has recommended Augmentin for the antibiotic to place the Keflex. She will stay on this at least until the area is drained. CC: DR. Peralta
== END | disposition home or self-care (01) ==
LOC: WWCWWP 08:41
PROVIDERS: ATTEND Surgery
DX: Z53.9 Procedure and treatment not carried out, unspecified reason (principal)

== ENCOUNTER → 2019-04-28 | Outpatient (CLI) | payer MEDICARE, OTHER ==
--- NOTE | 2019-04-28 11:03 | USB ---
Reason for exam: additional evaluation requested from prior study. History: Patient history of other cancer. Family history of breast cancer in maternal grandmother. Benign excisional biopsy of the right breast, February 01, 2019. US Breast Limited RT Right limited breast ultrasound including focal area of concern, retroareolar and axilla demonstrates 5.1 x 1.6cm mixed lesion at the posterior nipple, peripheral vascular flow, abscess appearance, prior measured 6.4 x 3.5 x 2.4cm and a 2.2 x 1.2cm lymph node at the axilla, cortical thickening, likely reactive. These results were verbally communicated with the patient and result sheet given to the patient on 04/28/19. ASSESSMENT: Suspicious, BI-RAD 4 RECOMMENDATION: Surgical consultation of the right breast. (surgical management) Called with mammographic findings and has scheduled an appointment for the patient for 04/28/19 at 10:[address] Alexander. PRELIMINARY REPORT CALLED AND FAXED TO DR. ALEXANDER ON 04/28/19.
== END | disposition home or self-care (01) ==
LOC: RADUSWWP 09:29
PROVIDERS: ATTEND Surgery
DX: N64.52 Nipple discharge (principal)

== ENCOUNTER 2019-04-30 14:29 | Inpatient (IN) | payer MEDICARE, OTHER ==
[2019-04-30] MEDS ORDERED: ACETAMINOPHEN TAB 325 MG TAB PO STA (14:43)
[2019-04-30 15:36] LABS: Basophils # (A) 0.1 k/uL (0-0.2); Basophils % (A) 1 %; Eosinophils # (A) 0.3 k/uL (0-0.7); Eosinophils % (A) 2 %; HCT 43.8 % (34.0-46.0); HGB 15.2 gm/dL (11.4-16.0); Lymphocytes # (A) 4.2 k/uL (1.0-4.8); Lymphocytes % (A) 25 %; MCH 32.6 pg (25.0-35.0); MCHC 34.8 g/dL (31.0-37.0); MCV 93.5 fL (80.0-100.0); Mean Platelet Volume 6.7; Monocytes # (A) 0.6 k/uL (0-1.0); Monocytes % (A) 4 %; Neutrophils # (A) 11.3 k/uL (1.3-7.7); Neutrophils % (A) 68 %; Platelet Count 264 k/uL (150-450); RBC 4.68 m/uL (3.80-5.40); RDW 12.4 % (11.5-15.5); WBC 16.7 k/uL (3.8-10.6)
[2019-04-30 15:47] LABS: Appearance,Urine Cloudy (Clear); Bacteria,Urine Many /hpf; Bilirubin,Urine Negative (Negative); Blood,Urine Negative (Negative); Color,Urine Yellow; Glucose,Urine (UA) 3+ (Negative); Ketones,Urine Negative (Negative); Leukocyte Esterase,Urine Negative (Negative); Mucus,Urine Few /hpf; Nitrite,Urine Negative (Negative); PH, Urine 5.5 (5.0-8.0); Protein,Urine Negative (Negative); Specific Gravity,Urine 1.013 (1.001-1.035); Squamous Epithelial Cell,Urine 21 /hpf (0-4); Urobilinogen,Urine <2.0 mg/dL (<2.0); WBC,Urine <1 /hpf (0-5)
[2019-04-30 15:48] LABS: INR 0.9 (<1.2); Partial Thromboplastin Time 23.3 sec (22.0-30.0); Prothrombin Time 9.4 sec (9.0-12.0)
[2019-04-30 15:58] LABS: ALT 26 U/L (9-52); AST 44 U/L (14-36); African American GFR (CKD) >90 (>60 ml/min/1.73 sqM); Albumin 4.2 g/dL (3.5-5.0); Alkaline Phosphatase 118 U/L (38-126); Anion Gap 12 mmol/L; Blood Urea Nitrogen 5 mg/dL (7-17); Calcium 9.4 mg/dL (8.4-10.2); Carbon Dioxide 20 mmol/L (22-30); Chloride 105 mmol/L (98-107); Glucose 227 mg/dL (74-99); Potassium 4.3 mmol/L (3.5-5.1); Sodium 137 mmol/L (137-145); Total Bilirubin 0.6 mg/dL (0.2-1.3); Total Protein 7.5 g/dL (6.3-8.2)
[2019-04-30] MEDS: SODIUM CHLORIDE 0.9% 500 ML 500 ML IV SCH ×2 (16:04→16:53)
[2019-04-30] MEDS ORDERED: PIPERACILLIN-TAZOBACTAM 3.375 GM in SODIUM CHLORIDE 0.9% 100 ML IVPB STA (16:10)
--- NOTE | 2019-04-30 16:12 | ED ---
Recheck HPI - General Source: patient Mode of arrival: ambulatory Limitations: no limitations <Nadege Salomon - Last Filed: 04/30/19 16:36> <Tanner Onofre - Last Filed: 04/30/19 16:50> - General Chief Complaint: Recheck/Abnormal Lab/Rx Stated Complaint: incision on breast opened up again Time Seen by Provider: 04/30/19 14:43 - History of Present Illness Initial Comments: 43-year-old female presents emergency department for chief complaint of breast abscess. Patient states that she "is full of pus" Patient states that she has had recurrent breast abscess since January. Patient states she is scheduled on Thursday for drainage. Patient states it is a 7 x 7 cm abscess. She states 20 minutes prior to arrival it broke open through the old surgical site draining foul-smelling pus. Patient denies any fevers or flulike symptoms. Patient denies any presyncopal episodes lightheadedness or dizziness. Patient denies any chest pain shortness of breath patient denies any nausea vomiting abdominal pain or any other complaints. Remaining review of systems negative. Upon arrival patient appears well however heart rate is noted to elevated,blood pressure stable. Patient surgeon Dr. Johnston (Nadege Salomon) - Related Data Home Medications Medication Instructions Recorded Confirmed Melatonin 10 mg PO HS 01/25/19 04/28/19 diphenhydrAMINE [Benadryl] 25 mg PO HS 01/25/19 04/28/19 Cephalexin [Keflex] 500 mg PO Q12HR 04/20/19 04/28/19 Allergies Allergy/AdvReac Type Severity Reaction Status Date / Time ibuprofen [From Motrin] Allergy Rash/Hives Verified 04/30/19 14:35 morphine Allergy migraines Verified 04/30/19 14:35 cephalexin [From Keflex] AdvReac Itching Verified 04/30/19 14:35 metronidazole [From Flagyl] AdvReac Itching Verified 04/30/19 14:35 Review of Systems ROS Other: All systems not noted in ROS Statement are negative. <Nadege Salomon - Last Filed: 04/30/19 16:36> ROS Other: All systems not noted in ROS Statement are negative. <Tanner Onofre - Last Filed: 04/30/19 16:50> ROS Statement: Those systems with pertinent positive or pertinent negative responses have been documented in the HPI. Past Medical History Past Medical History: Asthma, Cancer, COPD Additional Past Medical History / Comment(s): arrhythmia, hernia, cervical cancer 2004, ablasion History of Any Multi-Drug Resistant Organisms: None Reported Past Surgical History: Back Surgery, Breast Surgery, Section, Cholecystectomy, Tubal Ligation Additional Past Surgical History / Comment(s): pt had surgery february 01 on right breast to removed an abscess Past Anesthesia/Blood Transfusion Reactions: Previous Problems w/ Anesthesia Additional Past Anesthesia/Blood Transfusion Reaction / Comment(s): pt states they have a hard time putting her under and coming out of anesthesia Past Psychological History: Anxiety Smoking Status: Current every day smoker Past Alcohol Use History: None Reported Past Drug Use History: None Reported - Past Family History Father Family Medical History: No Reported History Mother Family Medical History: Cancer Additional Family Medical History / Comment(s): CERVICAL CANCER <Nadege Salomon L - Last Filed: 04/30/19 16:36> General Exam Limitations: no limitations <Nadege Salomon L - Last Filed: 04/30/19 16:36> - General Exam Comments Initial Comments: General: The patient is awake and alert, in no distress, and does not appear acutely ill. Eye: + 3 mm pupils are equal, round and reactive to light, extra-ocular movements are intact. No nystagmus. There is normal conjunctiva bilaterally. No signs of icterus. Ears, nose, mouth and throat: There are moist mucous membranes and no oral lesions. Cardiovascular: There is a regular rate and rhythm. No murmur, rub or gallop is appreciated. Respiratory: Lungs are clear to auscultation, respirations are non-labored, breath sounds are equal. No wheezes, stridor, rales, or rhonchi. Gastrointestinal: Soft, non-distended, non-tender abdomen without masses or organomegaly noted. There is no rebound or guarding present. Musculoskeletal: Normal ROM, no tenderness. Strength 5/5. Sensation intact. Radial pulses equal bilaterally 2+. Neurological: A&O x 3. CN II-XII intact grossly, There are no obvious motor or sensory deficits. Coordination appears grossly intact. Speech is normal. Skin: Skin is warm and dry and no rashes. By 7x7cm of redness and fluctuance of the right breast at the end o'clock position with a vertical incision purulent drainage, warmth. Psychiatric: Cooperative, appropriate mood & affect, normal judgment. (Nadege Salomon) Course <Tanner Onofre - Last Filed: 04/30/19 16:50> Vital Signs 04/30/19 04/30/19 14:32 15:31 Temperature 97.8 F Pulse Rate 111 H Respiratory 18 16 Rate Blood Pressure 147/78 O2 Sat by Pulse 98 Oximetry - Reevaluation(s) Reevaluation #1: 04/30/19 16:21 Patient reexamined and reevaluated by myself, Dr. Onofre. Patient does have ri ght breast abscess with purulent drainage. Patient updated on results. I do agree with PA findings. This includes diagnostic interpretation and treatment plan. Dr. Cruz has been paged for admission, covering for Dr. Peralta. Dr. Alexander will be placed on consult. 04/30/19 16:50 Dr. Cruz has been paged again. (Tanner Onofre) Medical Decision Making - Lab Data Result diagrams: 04/30/19 15:10 04/30/19 15:10 <Nadege Salomon - Last Filed: 04/30/19 16:36> - Lab Data Result diagrams: 04/30/19 15:10 04/30/19 15:10 <Tanner Onofre - Last Filed: 04/30/19 16:50> - Medical Decision Making 43-year-old female presents emergency room for evaluation of breast abscess. Patient states it broke open and expelling foul smelling purulent drainage. Patient has opening on examination with large abscess that is fluctuant and warm to palpation. Patient is afebrile however heart rate elevated significant leukocytosis as well as elevated lactic acid. Patient meets here for severe sepsis. Patient is given IV fluids started on Zosyn. Patient be admitted for IV antibiotics and surgical consultation by Dr. Johnston. Patient was evaluated and prescribed attending provider Dr. Onofre agreed with care plan and admission at this times. He spoke with the admitting provider patient is agreeable to admission. Patient remained stable emergency department no evidence of hypotension. (Nadege Salomon) - Lab Data Lab Results 04/30/19 04/30/19 04/30/19 Range/Units 15:10 15:10 15:10 WBC 16.7 H (3.8-10.6) k/uL RBC 4.68 (3.80-5.40) m/uL Hgb 15.2 (11.4-16.0) gm/dL Hct 43.8 (34.0-46.0) % MCV 93.5 (80.0-100.0) fL MCH 32.6 (25.0-35.0) pg MCHC 34.8 (31.0-37.0) g/dL RDW 12.4 (11.5-15.5) % Plt Count 264 (150-450) k/uL Neutrophils % 68 % Lymphocytes % 25 % Monocytes % 4 % Eosinophils % 2 % Basophils % 1 % Neutrophils # 11.3 H (1.3-7.7) k/uL Lymphocytes # 4.2 (1.0-4.8) k/uL Monocytes # 0.6 (0-1.0) k/uL Eosinophils # 0.3 (0-0.7) k/uL Basophils # 0.1 (0-0.2) k/uL PT (9.0-12.0) sec INR (<1.2) APTT (22.0-30.0) sec Sodium 137 (137-145) mmol/L Potassium 4.3 (3.5-5.1) mmol/L Chloride 105 (98-107) mmol/L Carbon Dioxide 20 L (22-30) mmol/L Anion Gap 12 mmol/L BUN 5 L (7-17) mg/dL Creatinine 0.51 L (0.52-1.04) mg/dL Est GFR (CKD-EPI)AfAm >90 (>60 ml/min/1.73 sqM) Est GFR (CKD-EPI)NonAf >90 (>60 ml/min/1.73 sqM) Glucose 227 H (74-99) mg/dL Plasma Lactic Acid Rich 3.1 H* (0.7-2.0) mmol/L Calcium 9.4 (8.4-10.2) mg/dL Total Bilirubin 0.6 (0.2-1.3) mg/dL AST 44 H (14-36) U/L ALT 26 (9-52) U/L Alkaline Phosphatase 118 (38-126) U/L Total Protein 7.5 (6.3-8.2) g/dL Albumin 4.2 (3.5-5.0) g/dL Urine Color Urine Appearance (Clear) Urine pH (5.0-8.0) Ur Specific [place] (1.001-1.035) Urine Protein (Negative) Urine Glucose (UA) (Negative) Urine Ketones (Negative) Urine Blood (Negative) Urine Nitrite (Negative) Urine Bilirubin (Negative) Urine Urobilinogen (<2.0) mg/dL Ur Leukocyte Esterase (Negative) Urine WBC (0-5) /hpf Ur Squamous Epith Cells (0-4) /hpf Urine Bacteria (None) /hpf Urine Mucus (None) /hpf 04/30/19 04/30/19 Range/Units 15:10 15:10 WBC (3.8-10.6) k/uL RBC (3.80-5.40) m/uL Hgb (11.4-16.0) gm/dL Hct (34.0-46.0) % MCV (80.0-100.0) fL MCH (25.0-35.0) pg MCHC (31.0-37.0) g/dL RDW (11.5-15.5) % Plt Count (150-450) k/uL Neutrophils % % Lymphocytes % % Monocytes % % Eosinophils % % Basophils % % Neutrophils # (1.3-7.7) k/uL Lymphocytes # (1.0-4.8) k/uL Monocytes # (0-1.0) k/uL Eosinophils # (0-0.7) k/uL Basophils # (0-0.2) k/uL PT 9.4 (9.0-12.0) sec INR 0.9 (<1.2) APTT 23.3 (22.0-30.0) sec Sodium (137-145) mmol/L Potassium (3.5-5.1) mmol/L Chloride (98-107) mmol/L Carbon Dioxide (22-30) mmol/L Anion Gap mmol/L BUN (7-17) mg/dL Creatinine (0.52-1.04) mg/dL Est GFR (CKD-EPI)AfAm (>60 ml/min/1.73 sqM) Est GFR (CKD-EPI)NonAf (>60 ml/min/1.73 sqM) Glucose (74-99) mg/dL Plasma Lactic Acid Rich (0.7-2.0) mmol/L Calcium (8.4-10.2) mg/dL Total Bilirubin (0.2-1.3) mg/dL AST (14-36) U/L ALT (9-52) U/L Alkaline Phosphatase (38-126) U/L Total Protein (6.3-8.2) g/dL Albumin (3.5-5.0) g/dL Urine Color Yellow Urine Appearance Cloudy H (Clear) Urine pH 5.5 (5.0-8.0) Ur Specific [place] 1.013 (1.001-1.035) Urine Protein Negative (Negative) Urine Glucose (UA) 3+ H (Negative) Urine Ketones Negative (Negative) Urine Blood Negative (Negative) Urine Nitrite Negative (Negative) Urine Bilirubin Negative (Negative) Urine Urobilinogen <2.0 (<2.0) mg/dL Ur Leukocyte Esterase Negative (Negative) Urine WBC <1 (0-5) /hpf Ur Squamous Epith Cells 21 H (0-4) /hpf Urine Bacteria Many H (None) /hpf Urine Mucus Few H (None) /hpf Disposition Is patient prescribed a controlled substance at d/c from ED?: No Time of Disposition: 16:35 Decision to Admit Reason: Admit from EC Decision Date: 04/30/19 Decision Time: 16:35 <Nadege Salomon - Last Filed: 04/30/19 16:36> <Tanner Onofre - Last Filed: 04/30/19 16:50> Clinical Impression: Breast abscess, Sepsis Disposition: ADMITTED IP TO THIS HOSP Condition: Serious
[2019-04-30] MEDS ORDERED: SODIUM CHLORIDE 0.9% 1,000 ML IV ONE (16:35)
[2019-04-30] MEDS ORDERED: VANCOMYCIN IV PER PHARMACY 1 EACH MISC MISCELLANE PRN (17:08)
[2019-04-30] MEDS ORDERED: VANCOMYCIN 1,500 MG in SODIUM CHLORIDE 0.9% 250 ML IVPB ONE (17:30)
[2019-04-30] MEDS: NICOTINE 14MG/24HR PATCH TRANSDERM SCH (21:54)
[2019-04-30 22:08] LABS: Glucose,Whole Blood 195 mg/dL (75-99)
[2019-04-30] MEDS: INSULIN ASPART (NovoLOG) 100 UNIT/ML VIAL SQ SCH (22:16)
[2019-05-01] MEDS: VANCOMYCIN 1,500 MG in SODIUM CHLORIDE 0.9% 250 ML IVPB SCH ×3 (02:22→17:20)
[2019-05-01 07:13] LABS: Glucose,Whole Blood 163 mg/dL (75-99)
[2019-05-01] MEDS ORDERED: INSULIN ASPART (NovoLOG) 100 UNIT/ML VIAL SQ SCH (07:30)
[2019-05-01] MEDS: INSULIN ASPART (NovoLOG) 100 UNIT/ML VIAL SQ SCH ×4 (08:28→21:47)
[2019-05-01] MEDS: NICOTINE 14MG/24HR PATCH TRANSDERM SCH (08:30)
[2019-05-01] MEDS: HYDROmorphone 0.5 MG/0.5 ML SYRINGE IVP PRN ×2 (11:03→18:13)
[2019-05-01 11:16] LABS: Glucose,Whole Blood 146 mg/dL (75-99)
[2019-05-01 11:34] LABS: Basophils # (A) 0.1 k/uL (0-0.2); Basophils % (A) 1 %; Eosinophils # (A) 0.2 k/uL (0-0.7); Eosinophils % (A) 2 %; HCT 37.9 % (34.0-46.0); HGB 13.2 gm/dL (11.4-16.0); Lymphocytes # (A) 3.3 k/uL (1.0-4.8); Lymphocytes % (A) 33 %; MCH 32.8 pg (25.0-35.0); MCV 93.7 fL (80.0-100.0); Mean Platelet Volume 6.7; Monocytes # (A) 0.5 k/uL (0-1.0); Monocytes % (A) 5 %; Neutrophils # (A) 5.8 k/uL (1.3-7.7); Neutrophils % (A) 59 %; Platelet Count 240 k/uL (150-450); RBC 4.04 m/uL (3.80-5.40); RDW 12.3 % (11.5-15.5)
[2019-05-01 11:42] LABS: ALT 32 U/L (9-52); AST 26 U/L (14-36); African American GFR (CKD) >90 (>60 ml/min/1.73 sqM); Albumin 3.2 g/dL (3.5-5.0); Alkaline Phosphatase 100 U/L (38-126); Anion Gap 4 mmol/L; Blood Urea Nitrogen 3 mg/dL (7-17); C Reactive Protein 24.7 mg/L (<10.0); Calcium 8.8 mg/dL (8.4-10.2); Carbon Dioxide 25 mmol/L (22-30); Chloride 110 mmol/L (98-107); Glucose 153 mg/dL (74-99); Sodium 139 mmol/L (137-145); Total Bilirubin 0.2 mg/dL (0.2-1.3); Total Protein 5.9 g/dL (6.3-8.2)
--- NOTE | 2019-05-01 13:27 | P.GSCN ---
History of Present Illness Consult date: 05/01/19 History of present illness: CHIEF COMPLAINT: Breast abscess HISTORY OF PRESENT ILLNESS: The patient is a 43 year old female who is status post lumpectomy since January now 2 to 3 months ago. She reports after her right lumpectomy, she developed a fluid collection. She was scheduled for drainage with Dr. Alexander. She had moderate tenderness and pain and swelling along the right breast at the 3 o'clock position that has now spontaneously drained. She has been on antibiotics since follow up with her surgeon. She is a chronic tobacco user 2 packs per day down to 1 pack per day. Now she is admitted for right breast cellulitis/abscess. Her breast pain has improved since rupture of the fluid collection. General surgery is consulted. PAST MEDICAL HISTORY: See list. PAST SURGICAL HISTORY: See list. MEDICATIONS: See list. ALLERGIES: See list. SOCIAL HISTORY: See list. FAMILY HISTORY: See list. REVIEW OF ORGAN SYSTEMS: CONSTITUTIONAL: No fevers or chills. No recent weight loss. EYES: Denies any trouble with vision. No glasses. HEENT: No difficulties with hearing. No nosebleeds. No difficulty swallowing. RESPIRATORY: Denies pneumonia. Has asthma. Has COPD. Chronic tobacco abuse. CARDIOVASCULAR: Denies any chest pain, palpitations, or recent heart attacks. GASTROINTESTINAL: Denies fatty food intolerance. Denies change in bowel habits and gas bloat. GENITOURINARY: Denies any blood in urine or increased urinary frequency. NEUROLOGICAL: Denies any numbness or tingling along the distal extremities. No seizure disorders or headaches. MUSCULOSKELETAL: Has back pain, stiffness or joint arthritis. SKIN: No current skin cancer. No rash. PSYCHIATRIC: Denies current depression or suicidal thoughts. Has anxiety. ENDOCRINE: Denies current thyroid disorders. Denies any blood sugar glucose intolerance. HEME/LYMPHATIC: Denies any lumps and bumps around the neck. No recent deep venous thrombosis. ALLERGY/IMMUNOLOGY: No immunoglobulin therapy. No immune deficiencies. BREAST: Past breast lumps, pain and nipple discharge. PHYSICAL EXAM: VITALS: Reviewed CONSTITUTIONAL: Well developed and in no acute distress. EYES: Conjuctivae without sclera icterus. Pupils are equally round and reactive to light. Extraocular movements grossly intact. HEAD, EARS, NOSE, THROAT: Moist buccal mucosa. Head is atraumatic, normocephalic. Hears conversational speech. No nasal drainage. NECK: Supple. No JV distention. No thyroidomegaly. RESPIRATORY: Non-labored respirations and equal bilateral excursions. No gross wheezes. CARDIOVASCULAR: Regular rate and rhythm. Palpable 2+ radial pulses. ABDOMEN: No hepatomegaly. Soft. Non-tender. Nondistended. LYMPH: No neck lymphadenopathy. No axillary lymphadenopathy. MUSCULOSKELETAL: Nail and fingers with good capillary refill. SKIN: Warm and well perfused with good skin turgor. NEUROLOGIC: Cranial nerves I through XII grossly intact. Sensation upper and extremities intact. No focal or lateralizing signs. PSYCH: Appropriate affect. Alert and oriented to person, place and time. Disp lays appropriate insight. BREAST: Right breast at 3-o'clock with incision. No moderate cellulitis. No active purulent drainage CLINCAL LABS: Reviewed. WBC improved from 16,000 to 10,000 RADIOLOGY: Report reviewed with breast ultrasound with 5 cm lesion right behind the nipple IMAGING: Independently reviewed with abscess with fluid collection ASSESSMENT: 1. Sepsis with right breast cellulitis/abscess PLAN: 1. Continue IV antibiotics 2. Recommend cold and warm packs to right breast for comfort 3. Will notify Dr. Preston Javier regarding patient and tentative surgical case for May 03 4. Strict tobacco cessation reviewed over 3 minutes at bedside Thank you for this kind consultation. Past Medical History Past Medical History: Asthma, Cancer, COPD Additional Past Medical History / Comment(s): arrhythmia, hernia, cervical c ancer 2004, ablasion History of Any Multi-Drug Resistant Organisms: None Reported Past Surgical History: Back Surgery, Breast Surgery, Section, Cholecystectomy, Tubal Ligation Additional Past Surgical History / Comment(s): pt had surgery february 01 on right breast to removed an abscess, LEAP Past Anesthesia/Blood Transfusion Reactions: Previous Problems w/ Anesthesia Additional Past Anesthesia/Blood Transfusion Reaction / Comm: pt states they have a hard time putting her under and coming out of anesthesia Past Psychological History: Anxiety Smoking Status: Current every day smoker Past Alcohol Use History: None Reported Past Drug Use History: None Reported - Past Family History Father Family Medical History: No Reported History Mother Family Medical History: Cancer Additional Family Medical History / Comment(s): CERVICAL CANCER Medications and Allergies Home Medications Medication Instructions Recorded Confirmed Type Melatonin 10 mg PO HS 01/25/19 04/30/19 History diphenhydrAMINE [Benadryl] 75 mg PO HS 01/25/19 04/30/19 History Allergies Allergy/AdvReac Type Severity Reaction Status Date / Time ibuprofen [From Motrin] Allergy Rash/Hives Verified 04/30/19 16:57 morphine Allergy migraines Verified 04/30/19 16:57 cephalexin [From Keflex] AdvReac Itching Verified 04/30/19 16:57 metronidazole [From Flagyl] AdvReac Itching Verified 04/30/19 16:57 Surgical - Exam Vital Signs Temp Pulse Resp BP Pulse Ox 97.8 F 111 H 18 147/78 98 04/30/19 14:32 04/30/19 14:32 04/30/19 14:32 04/30/19 14:32 04/30/19 14:32 Results - Labs 05/01/19 11:14 05/01/19 11:14 Abnormal Lab Results - Last 24 Hours (Table) 04/30/19 04/30/19 04/30/19 Range/Units 15:10 15:10 15:10 WBC 16.7 H (3.8-10.6) k/uL Neutrophils # 11.3 H (1.3-7.7) k/uL Chloride (98-107) mmol/L Carbon Dioxide 20 L (22-30) mmol/L BUN 5 L (7-17) mg/dL Creatinine 0.51 L (0.52-1.04) mg/dL Glucose 227 H (74-99) mg/dL POC Glucose (mg/dL) (75-99) mg/dL Plasma Lactic Acid Rich 3.1 H* (0.7-2.0) mmol/L AST 44 H (14-36) U/L C-Reactive Protein (<10.0) mg/L Total Protein (6.3-8.2) g/dL Albumin (3.5-5.0) g/dL Urine Appearance (Clear) Urine Glucose (UA) (Negative) Ur Squamous Epith Cells (0-4) /hpf Urine Bacteria (None) /hpf Urine Mucus (None) /hpf 04/30/19 04/30/19 05/01/19 Range/Units 15:10 21:58 07:10 WBC (3.8-10.6) k/uL Neutrophils # (1.3-7.7) k/uL Chloride (98-107) mmol/L Carbon Dioxide (22-30) mmol/L BUN (7-17) mg/dL Creatinine (0.52-1.04) mg/dL Glucose (74-99) mg/dL POC Glucose (mg/dL) 195 H 163 H (75-99) mg/dL Plasma Lactic Acid Rich (0.7-2.0) mmol/L AST (14-36) U/L C-Reactive Protein (<10.0) mg/L Total Protein (6.3-8.2) g/dL Albumin (3.5-5.0) g/dL Urine Appearance Cloudy H (Clear) Urine Glucose (UA) 3+ H (Negative) Ur Squamous Epith Cells 21 H (0-4) /hpf Urine Bacteria Many H (None) /hpf Urine Mucus Few H (None) /hpf 05/01/19 05/01/19 Range/Units 11:14 11:14 WBC (3.8-10.6) k/uL Neutrophils # (1.3-7.7) k/uL Chloride 110 H (98-107) mmol/L Carbon Dioxide (22-30) mmol/L BUN 3 L (7-17) mg/dL Creatinine 0.46 L (0.52-1.04) mg/dL Glucose 153 H (74-99) mg/dL POC Glucose (mg/dL) 146 H (75-99) mg/dL Plasma Lactic Acid Rich (0.7-2.0) mmol/L AST (14-36) U/L C-Reactive Protein 24.7 H (<10.0) mg/L Total Protein 5.9 L (6.3-8.2) g/dL Albumin 3.2 L (3.5-5.0) g/dL Urine Appearance (Clear) Urine Glucose (UA) (Negative) Ur Squamous Epith Cells (0-4) /hpf Urine Bacteria (None) /hpf Urine Mucus (None) /hpf Diabetes panel 04/30/19 05/01/19 Range/Units 15:10 11:14 Sodium 137 139 (137-145) mmol/L Potassium 4.3 4.0 (3.5-5.1) mmol/L Chloride 105 110 H (98-107) mmol/L Carbon Dioxide 20 L 25 (22-30) mmol/L BUN 5 L 3 L (7-17) mg/dL Creatinine 0.51 L 0.46 L (0.52-1.04) mg/dL Glucose 227 H 153 H (74-99) mg/dL Calcium 9.4 8.8 (8.4-10.2) mg/dL AST 44 H 26 (14-36) U/L ALT 26 32 (9-52) U/L Alkaline Phosphatase 118 100 (38-126) U/L Total Protein 7.5 5.9 L (6.3-8.2) g/dL Albumin 4.2 3.2 L (3.5-5.0) g/dL Calcium panel 04/30/19 05/01/19 Range/Units 15:10 11:14 Calcium 9.4 8.8 (8.4-10.2) mg/dL Albumin 4.2 3.2 L (3.5-5.0) g/dL Pituitary panel 04/30/19 05/01/19 Range/Units 15:10 11:14 Sodium 137 139 (137-145) mmol/L Potassium 4.3 4.0 (3.5-5.1) mmol/L Chloride 105 110 H (98-107) mmol/L Carbon Dioxide 20 L 25 (22-30) mmol/L BUN 5 L 3 L (7-17) mg/dL Creatinine 0.51 L 0.46 L (0.52-1.04) mg/dL Glucose 227 H 153 H (74-99) mg/dL Calcium 9.4 8.8 (8.4-10.2) mg/dL Adrenal panel 04/30/19 05/01/19 Range/Units 15:10 11:14 Sodium 137 139 (137-145) mmol/L Potassium 4.3 4.0 (3.5-5.1) mmol/L Chloride 105 110 H (98-107) mmol/L Carbon Dioxide 20 L 25 (22-30) mmol/L BUN 5 L 3 L (7-17) mg/dL Creatinine 0.51 L 0.46 L (0.52-1.04) mg/dL Glucose 227 H 153 H (74-99) mg/dL Calcium 9.4 8.8 (8.4-10.2) mg/dL Total Bilirubin 0.6 0.2 (0.2-1.3) mg/dL AST 44 H 26 (14-36) U/L ALT 26 32 (9-52) U/L Alkaline Phosphatase 118 100 (38-126) U/L Total Protein 7.5 5.9 L (6.3-8.2) g/dL Albumin 4.2 3.2 L (3.5-5.0) g/dL Assessment and Plan (1) Abscess of right breast Current Visit: Yes Status: Acute Code(s): N61.1 - ABSCESS OF THE BREAST AND NIPPLE SNOMED Code(s): 71939913 (2) Cellulitis of right breast Current Visit: Yes Status: Acute Code(s): N61.0 - MASTITIS WITHOUT ABSCESS SNOMED Code(s): 18009527 (3) Breast abscess Current Visit: Yes Status: Acute Code(s): N61.1 - ABSCESS OF THE BREAST AND NIPPLE SNOMED Code(s): 11526242 (4) Sepsis Current Visit: Yes Status: Acute Code(s): A41.9 - SEPSIS, UNSPECIFIED ORGANISM SNOMED Code(s): 58900481 (5) Tobacco abuse Current Visit: Yes Status: Acute Code(s): Z72.0 - TOBACCO USE SNOMED Code(s): 486286357 (6) Morbid obesity due to excess calories Current Visit: Yes Status: Acute Code(s): E66.01 - MORBID (SEVERE) OBESITY DUE TO EXCESS CALORIES SNOMED Code(s): 326150608 (7) BMI 37.0-37.9, adult Current Visit: Yes Status: Acute Code(s): Z68.37 - BODY MASS INDEX (BMI) 37.0-37.9, ADULT SNOMED Code(s): 345038925
[2019-05-01 13:50] LABS: Erythrocyte Sedimentation Rate 16 mm/hr (0-20)
[2019-05-01] MEDS ORDERED: IPRATROPIUM-ALBUTEROL 3 ML NEB INHALATION PRN (14:16)
--- NOTE | 2019-05-01 14:16 | P.HPIM ---
History of Present Illness H&P Date: 05/01/19 43 years old female with past medical history of cervical cancer 2004, asthma, COPD, tobacco use patient wanda Vines presents with significant swelling of her right breast. According to the patient vision or recurrent does the breast abscesses since January of her right lumpectomy. She had a 6 scheduled surgery planned for Thursday with Dr. Preston Javier. Patient came in yesterday since the abscess broke open from the old surgical site was draining a foul-smelling pus. She denies any fever or chills. Patient denied any palpitation or chest pain. On assessment of vitals in the ER patient was found to be tachycardic with a pulse rate of 111 and respiratory rate of 20 with a leukocytosis of 16.7 patient med the septic criteria was admitted for sepsis with IV vancomycin and the Zosyn. Surgery consulted for possible I&D. Review of Systems Constitutional: Denies chills, Denies fever, Denies lethargy, Denies malaise, Denies poor appetite, Denies weakness, Denies weight loss Eyes: denies decreased vision, denies diplopia, denies discharge, denies pain Ears: deny: decreased hearing Ears, nose, mouth and throat: Denies dental pain, Denies headache, Denies nasal discharge, Denies nose pain Cardiovascular: Denies chest pain, Denies decreased exercise tolerance, Denies edema, Denies high blood pressure, Denies irregular heart beat, Denies palpitations, Denies paroxysmal nocturnal dyspnea, Denies rapid heart beat, Denies shortness of breath Respiratory: Denies congestion, Denies cough, Denies cough with sputum, Denies dyspnea, Denies home oxygen, Denies wheezing Gastrointestinal: Denies abdominal pain, Denies change in bowel habits, Denies coffee ground emesis, Denies early satiety, Denies excessive gas, Denies heartburn, Denies hematemesis, Denies hematochezia, Denies loss of appetite, Denies nausea, Denies vomiting Genitourinary: Denies dysuria, Denies flank pain, Denies kidney stones, Denies menorrhagia, Denies urgency, Denies urinary frequency Musculoskeletal: Denies gait dysfunction, Denies limitation of motion, Denies morning stiffness, Denies muscle cramps Integumentary: Breast abscess Denies wounds, Denies brittle nails, Denies change in hair/nails, Denies darkening of skin Neurological: Denies balance difficulties, Denies change in speech, Denies double vision, Denies gait dysfunction, Denies loss of vision, Denies motor disturbance, Denies numbness, Denies paralysis, Denies paresthesias, Denies seizures Psychiatric: Denies anxiety, Denies depression Endocrine: Denies excessive sweating, Denies excessive thirst, Denies high blood sugars, Denies palpitations Hematologic/Lymphatic: Denies easy bruising, Denies lymphadenopathy Past Medical History Past Medical History: Asthma, Cancer, COPD Additional Past Medical History / Comment(s): arrhythmia, hernia, cervical cancer 2004, ablasion History of Any Multi-Drug Resistant Organisms: None Reported Past Surgical History: Back Surgery, Breast Surgery, Section, Cholecystectomy, Tubal Ligation Additional Past Surgical History / Comment(s): pt had surgery february 01 on right breast to removed an abscess, LEAP Past Anesthesia/Blood Transfusion Reactions: Previous Problems w/ Anesthesia Additional Past Anesthesia/Blood Transfusion Reaction / Comment(s): pt states they have a hard time putting her under and coming out of anesthesia Past Psychological History: Anxiety Smoking Status: Current every day smoker Past Alcohol Use History: None Reported Past Drug Use History: None Reported - Past Family History Father Family Medical History: No Reported History Mother Family Medical History: Cancer Additional Family Medical History / Comment(s): CERVICAL CANCER Medications and Allergies Home Medications Medication Instructions Recorded Confirmed Type Melatonin 10 mg PO HS 01/25/19 04/30/19 History diphenhydrAMINE [Benadryl] 75 mg PO HS 01/25/19 04/30/19 History Allergies Allergy/AdvReac Type Severity Reaction Status Date / Time ibuprofen [From Motrin] Allergy Rash/Hives Verified 04/30/19 16:57 morphine Allergy migraines Verified 04/30/19 16:57 cephalexin [From Keflex] AdvReac Itching Verified 04/30/19 16:57 metronidazole [From Flagyl] AdvReac Itching Verified 04/30/19 16:57 Physical Exam Vitals: Vital Signs Temp Pulse Pulse Resp BP BP Pulse Ox 05/01/19 07:45 98 F 89 18 136/86 95 05/01/19 02:15 97.8 F 74 17 152/80 97 04/30/19 19:43 98.8 F 80 20 146/83 95 04/30/19 18:00 98.1 F 80 18 133/80 98 04/30/19 17:19 97.9 F 75 18 139/71 98 04/30/19 15:31 16 04/30/19 14:32 97.8 F 111 H 18 147/78 98 Intake and Output 04/30/19 05/01/19 05/01/19 22:59 06:59 14:59 Intake Total 2600 100 Balance 2600 100 Intake: Amount of Fluid Infused ( 2500 ml) Oral 100 100 Other: # Voids 1 - Constitutional General appearance: cooperative, no acute distress, obese - EENT Eyes: anicteric sclerae, PERRLA, normal appearance ENT: hearing grossly normal - Neck Neck: no lymphadenopathy, normal ROM, no other, no rigidity, no stridor, no thyromegaly - Respiratory Respiratory: bilateral: CTA, negative: diminished, dullness, rales, rhonchi - Cardiovascular Rhythm: regular Heart sounds: normal: S1, S2 Abnormal Heart Sounds: no systolic murmur, no diastolic murmur, no rub, no S3 Gallop, no S4 Gallop, no click, no other - Gastrointestinal General gastrointestinal: normal bowel sounds, soft - Integumentary Integumentary: Significant induration noted under the right breast nipple with open incision and drainage site draining the purulent discharge. No overlying erythema or warmth noted. - Neurologic Neurologic: CNII-XII intact - Musculoskeletal Musculoskeletal: gait normal, strength equal bilaterally - Psychiatric Psychiatric: A&O x's 3, appropriate affect Results CBC & Chem 7: 05/01/19 11:14 05/01/19 11:14 Labs: Abnormal Lab Results - Last 24 Hours (Table) 04/30/19 04/30/19 04/30/19 Range/Units 15:10 15:10 15:10 WBC 16.7 H (3.8-10.6) k/uL Neutrophils # 11.3 H (1.3-7.7) k/uL Chloride (98-107) mmol/L Carbon Dioxide 20 L (22-30) mmol/L BUN 5 L (7-17) mg/dL Creatinine 0.51 L (0.52-1.04) mg/dL Glucose 227 H (74-99) mg/dL POC Glucose (mg/dL) (75-99) mg/dL Plasma Lactic Acid Rich 3.1 H* (0.7-2.0) mmol/L AST 44 H (14-36) U/L C-Reactive Protein (<10.0) mg/L Total Protein (6.3-8.2) g/dL Albumin (3.5-5.0) g/dL Urine Appearance (Clear) Urine Glucose (UA) (Negative) Ur Squamous Epith Cells (0-4) /hpf Urine Bacteria (None) /hpf Urine Mucus (None) /hpf 04/30/19 04/30/19 05/01/19 Range/Units 15:10 21:58 07:10 WBC (3.8-10.6) k/uL Neutrophils # (1.3-7.7) k/uL Chloride (98-107) mmol/L Carbon Dioxide (22-30) mmol/L BUN (7-17) mg/dL Creatinine (0.52-1.04) mg/dL Glucose (74-99) mg/dL POC Glucose (mg/dL) 195 H 163 H (75-99) mg/dL Plasma Lactic Acid Rich (0.7-2.0) mmol/L AST (14-36) U/L C-Reactive Protein (<10.0) mg/L Total Protein (6.3-8.2) g/dL Albumin (3.5-5.0) g/dL Urine Appearance Cloudy H (Clear) Urine Glucose (UA) 3+ H (Negative) Ur Squamous Epith Cells 21 H (0-4) /hpf Urine Bacteria Many H (None) /hpf Urine Mucus Few H (None) /hpf 05/01/19 05/01/19 Range/Units 11:14 11:14 WBC (3.8-10.6) k/uL Neutrophils # (1.3-7.7) k/uL Chloride 110 H (98-107) mmol/L Carbon Dioxide (22-30) mmol/L BUN 3 L (7-17) mg/dL Creatinine 0.46 L (0.52-1.04) mg/dL Glucose 153 H (74-99) mg/dL POC Glucose (mg/dL) 146 H (75-99) mg/dL Plasma Lactic Acid Rich (0.7-2.0) mmol/L AST (14-36) U/L C-Reactive Protein 24.7 H (<10.0) mg/L Total Protein 5.9 L (6.3-8.2) g/dL Albumin 3.2 L (3.5-5.0) g/dL Urine Appearance (Clear) Urine Glucose (UA) (Negative) Ur Squamous Epith Cells (0-4) /hpf Urine Bacteria (None) /hpf Urine Mucus (None) /hpf Thrombosis Risk Factor Assmnt - DVT/VTE Prophylaxis DVT/VTE Prophylaxis: Pharmacologic Prophylaxis ordered - Choose All That Apply Each Factor Represents 1 point: Age 41-60 years, Obesity (BMI >25) Thrombosis Risk Factor Assessment Total Risk Factor Score: 2 Thrombosis Risk Factor Assessment Level: Low Risk Assessment and Plan Plan: #1 sepsis secondary to breast abscesses continue vancomycin and Zosyn IV fluids at 75 mL per hour. Watch vitals for any episodes of fever blood culture ordered. Infectious disease and surgery consult for possible I&D. Pain not controlled with the morphine. Pain medications switched to Dilaudid 0.5 mg every 3 hours status post 2.5 L of IV fluid lactic acid is initially evaluated currently normal #2 history of asthma/COPD continue DuoNeb as needed #3 DVT prophylaxis with the heparin every 12 #4 insomnia continue melatonin 10 mg daily at bedtime Disposition patient may need 1-2 inpatient nights for possible I&D as well as sepsis
[2019-05-01 17:22] LABS: Glucose,Whole Blood 173 mg/dL (75-99)
[2019-05-01 21:09] LABS: Glucose,Whole Blood 171 mg/dL (75-99)
[2019-05-01] MEDS: MELATONIN 5 MG TABLET PO SCH (21:46)
[2019-05-01] MEDS: HEPARIN SODIUM,PORCINE 5,000 UNIT/ML 1 ML VIAL SQ SCH (21:47)
--- NOTE | 2019-05-01 23:12 | P.CONS ---
History of Present Illness - Reason for Consult Consult date: 05/01/19 right breast abscess Requesting physician: Khushbu Galdamez - Chief Complaint right breast drainage and pain x 1 day - History of Present Illness Patient is a 44-year-old female who is status post lumpectomy of the right breast beginning of January 2019 patient mentioned the initial incision subsequently healed up however on 1 of the follow-up visit when the surgeon squeezed on the area there was some purulent secretion coming out of her nipple subsequently the patient did have an ultrasound of the breast completed with a area of fluid collection and the patient was scheduled to have drainage of this fluid collection by Dr. Johnston this Thursday however the patient presented to the ER at [facility] yesterday after apparently the patient noticed sponta neous drainage of an abscess and drainage of purulent material patient has been complaining of pain to the right breast area describing to be more of a dull aching at times sharp intensity is about 8 out of 10 and no radiation patient did have some chills but denies high-grade fever with the symptoms and the patient was evaluated by the ER physician on arrival to the patient has been afebrile white count was elevated at 16.7 creatinine was normal blood cultures obtained which are currently pending, no local wound culture was done patient was started on vancomycin and Zosyn has also subsequently discontinued she was kept on vancomycin and infectious was consulted for further recommendation re garding antibiotic therapy. Review of Systems CONSTITUTIONAL: Positive for weakness. no Fever EYES: No complaint. ENT:No complaint. RESPIRATORY: No complaint. CARDIOVASCULAR: No complaint. GENITOURINARY: No complaint. GASTROINTESTINAL: No complaint. MUSCULOSKELETAL: No complaint. INTEGUMENTARY as per history of present illness PSYCHOLOGICAL: No complaint. ENDOCRINE: No complaint. NEUROLOGIC: No complaint. Past Medical History Past Medical History: Asthma, Cancer, COPD Additional Past Medical History / Comment(s): arrhythmia, hernia, cervical cancer 2004, ablasion History of Any Multi-Drug Resistant Organisms: None Reported Past Surgical History: Back Surgery, Breast Surgery, Section, Cholecystectomy, Tubal Ligation Additional Past Surgical History / Comment(s): pt had surgery february 01 on right breast to removed an abscess, LEAP Past Anesthesia/Blood Transfusion Reactions: Previous Problems w/ Anesthesia Additional Past Anesthesia/Blood Transfusion Reaction / Comm: pt states they have a hard time putting her under and coming out of anesthesia Past Psychological History: Anxiety Smoking Status: Current every day smoker Past Alcohol Use History: None Reported Past Drug Use History: None Reported - Past Family History Father Family Medical History: No Reported History Mother Family Medical History: Cancer Additional Family Medical History / Comment(s): CERVICAL CANCER Medications and Allergies Home Medications Medication Instructions Recorded Confirmed Type Melatonin 10 mg PO HS 01/25/19 04/30/19 History diphenhydrAMINE [Benadryl] 75 mg PO HS 01/25/19 04/30/19 History Allergies Allergy/AdvReac Type Severity Reaction Status Date / Time ibuprofen [From Motrin] Allergy Rash/Hives Verified 04/30/19 16:57 morphine Allergy migraines Verified 04/30/19 16:57 cephalexin [From Keflex] AdvReac Itching Verified 04/30/19 16:57 metronidazole [From Flagyl] AdvReac Itching Verified 04/30/19 16:57 Physical Exam Vitals: Vital Signs Temp Pulse Pulse Resp BP BP Pulse Ox 05/01/19 07:45 98 F 89 18 136/86 95 05/01/19 02:15 97.8 F 74 17 152/80 97 04/30/19 19:43 98.8 F 80 20 146/83 95 04/30/19 18:00 98.1 F 80 18 133/80 98 04/30/19 17:19 97.9 F 75 18 139/71 98 04/30/19 15:31 16 Intake and Output 04/30/19 05/01/19 05/01/19 22:59 06:59 14:59 Intake Total 2600 100 Balance 2600 100 Intake: Amount of Fluid Infused ( 2500 ml) Oral 100 100 Other: # Voids 1 GENERAL DESCRIPTION: Middle-aged male lying in bed, no distress. No tachypnea or accessory muscle of respiration use. HEENT: Shows Pallor , no scleral icterus. Oral mucous membrane is dry. No pharyngeal erythema or thrush NECK: Trachea central, no thyromegaly. LUNGS: Unlabored breathing. Clear to auscultation anteriorly. No wheeze or crackle. HEART: S1, S2, regular rate and rhythm. No loud murmur ABDOMEN: Soft, no tenderness , guarding or rigidity, no organomegaly EXTREMITIES: No edema of feet. SKIN: No rash, no masses palpable. right lower breast with wound , no slough , no redness , no foul smelling draiange NEUROLOGICAL: The patient is awake, alert, oriented x3, mood and affect normal. Results CBC & Chem 7: 05/01/19 11:14 05/01/19 11:14 Labs: Abnormal Lab Results - Last 24 Hours (Table) 04/30/19 04/30/19 04/30/19 Range/Units 15:10 15:10 15:10 WBC 16.7 H (3.8-10.6) k/uL Neutrophils # 11.3 H (1.3-7.7) k/uL Chloride (98-107) mmol/L Carbon Dioxide 20 L (22-30) mmol/L BUN 5 L (7-17) mg/dL Creatinine 0.51 L (0.52-1.04) mg/dL Glucose 227 H (74-99) mg/dL POC Glucose (mg/dL) (75-99) mg/dL Plasma Lactic Acid Rich 3.1 H* (0.7-2.0) mmol/L AST 44 H (14-36) U/L C-Reactive Protein (<10.0) mg/L Total Protein (6.3-8.2) g/dL Albumin (3.5-5.0) g/dL Urine Appearance (Clear) Urine Glucose (UA) (Negative) Ur Squamous Epith Cells (0-4) /hpf Urine Bacteria (None) /hpf Urine Mucus (None) /hpf 04/30/19 04/30/19 05/01/19 Range/Units 15:10 21:58 07:10 WBC (3.8-10.6) k/uL Neutrophils # (1.3-7.7) k/uL Chloride (98-107) mmol/L Carbon Dioxide (22-30) mmol/L BUN (7-17) mg/dL Creatinine (0.52-1.04) mg/dL Glucose (74-99) mg/dL POC Glucose (mg/dL) 195 H 163 H (75-99) mg/dL Plasma Lactic Acid Rich (0.7-2.0) mmol/L AST (14-36) U/L C-Reactive Protein (<10.0) mg/L Total Protein (6.3-8.2) g/dL Albumin (3.5-5.0) g/dL Urine Appearance Cloudy H (Clear) Urine Glucose (UA) 3+ H (Negative) Ur Squamous Epith Cells 21 H (0-4) /hpf Urine Bacteria Many H (None) /hpf Urine Mucus Few H (None) /hpf 05/01/19 05/01/19 Range/Units 11:14 11:14 WBC (3.8-10.6) k/uL Neutrophils # (1.3-7.7) k/uL Chloride 110 H (98-107) mmol/L Carbon Dioxide (22-30) mmol/L BUN 3 L (7-17) mg/dL Creatinine 0.46 L (0.52-1.04) mg/dL Glucose 153 H (74-99) mg/dL POC Glucose (mg/dL) 146 H (75-99) mg/dL Plasma Lactic Acid Rich (0.7-2.0) mmol/L AST (14-36) U/L C-Reactive Protein 24.7 H (<10.0) mg/L Total Protein 5.9 L (6.3-8.2) g/dL Albumin 3.2 L (3.5-5.0) g/dL Urine Appearance (Clear) Urine Glucose (UA) (Negative) Ur Squamous Epith Cells (0-4) /hpf Urine Bacteria (None) /hpf Urine Mucus (None) /hpf Assessment and Plan Assessment: 1-patient presented to hospital with spontaneous drainage of a fluid collection on her right breast area for the patient was scheduled to have drainage of the same area times this Thursday with concern for an abscess possibly related to gram-positive skin porfirio less likely gram-negative infection (1) Breast abscess Current Visit: Yes Status: Acute Code(s): N61.1 - ABSCESS OF THE BREAST AND NIPPLE SNOMED Code(s): 31823803 Plan: 1-wound culture has been obtained to guide antibiotic therapy however will request obtaining deep cultures at the time of surgical drainage this Thursday 2-vancomycin pharmacy to dose target trough of 15 while watching his kidney function and vancomycin trough closely 3-dry Aquacel silver dressing to the wound to be changed daily 4-IV fluids We will follow on clinical condition and cultures to further adjust medication if needed Thank you for this consultation will follow this patient along with you Time with Patient: Greater than 30
[2019-05-02] MEDS: HYDROmorphone 0.5 MG/0.5 ML SYRINGE IVP PRN ×4 (02:01→21:04)
[2019-05-02] MEDS: VANCOMYCIN 1,500 MG in SODIUM CHLORIDE 0.9% 250 ML IVPB SCH ×3 (02:07→17:01)
[2019-05-02 07:08] LABS: Glucose,Whole Blood 151 mg/dL (75-99)
[2019-05-02] MEDS: HEPARIN SODIUM,PORCINE 5,000 UNIT/ML 1 ML VIAL SQ SCH ×2 (07:09→20:57)
[2019-05-02] MEDS: INSULIN ASPART (NovoLOG) 100 UNIT/ML VIAL SQ SCH ×4 (07:09→20:57)
[2019-05-02] MEDS: NICOTINE 14MG/24HR PATCH TRANSDERM SCH (07:09)
[2019-05-02] MEDS ORDERED: VANCOMYCIN TROUGH DUE 1 EACH MISC MISCELLANE ONE (09:00)
[2019-05-02 11:37] LABS: Glucose,Whole Blood 169 mg/dL (75-99)
--- NOTE | 2019-05-02 15:50 | P.PN ---
Subjective Progress Note Date: 05/02/19 43 years old female with past medical history of cervical cancer 2005, asthma, COPD, tobacco use patient wanda Vines presents with significant swelling of her right breast. According to the patient vision or recurrent does the breast abscesses since January of her right lumpectomy. She had a 6 scheduled surgery planned for Thursday with Dr. Preston Javier. Patient came in yesterday since the abscess broke open from the old surgical site was draining a foul-smelling pus. She denies any fever or chills. Patient denied any palpitation or chest pain. On assessment of vitals in the ER patient was found to be tachycardic with a pulse rate of 111 and respiratory rate of 20 with a leukocytosis of 16.7 patient med the septic criteria was admitted for sepsis with IV vancomycin and the Zosyn. Surgery consulted for possible I&D. 05/02: Patient has been seen by Dr. Cline with recommendations for vancomycin, Aquacel Ag dressing to the wound be changed daily. Wound cultures are in progress. Patient has been seen by Dr. Buck and additionally she recommends cold and warm packs to the breast for comfort. Dr. Preston Javier will be notified of this case which is a surgical case for May 03. Patient has been afebrile, blood pressure 143/93, heart rate 77, pulse ox 95% on room air. Blood sugars are running between 150 - 173. The patient has not been diagnosed with diabetes. Hemoglobin A1c ordered. C-reactive protein is 24.7 and sed rate 16. Breast area remains indurated. She is scheduled for I&D tomorrow. Possible discharge tomorrow or Thursday. Objective - Vital Signs Vital signs: Vital Signs Temp 98.2 F 05/02/19 07:00 Pulse 77 05/02/19 07:00 Resp 15 05/02/19 07:00 BP 143/93 05/02/19 07:00 Pulse Ox 95 05/02/19 07:00 Intake & Output 05/01/19 05/02/19 05/02/19 18:59 06:59 18:59 Intake Total 560 Balance 560 Intake: Oral 560 Other: Voiding Method Toilet Toilet # Voids 6 1 1 # Bowel Movements 1 - Exam Review of Systems Constitutional: Denies chills, Denies fever, Denies lethargy, Denies malaise, Denies poor appetite, Denies weakness, Denies weight loss Eyes: denies decreased vision, denies diplopia, denies discharge, denies pain Ears: deny: decreased hearing Ears, nose, mouth and throat: Denies dental pain, Denies headache, Denies nasal discharge, Denies nose pain Cardiovascular: Denies chest pain, Denies decreased exercise tolerance, Denies edema, Denies high blood pressure, Denies irregular heart beat, Denies palpitations, Denies paroxysmal nocturnal dyspnea, Denies rapid heart beat, Denies shortness of breath Respiratory: Denies congestion, Denies cough, Denies cough with sputum, Denies dyspnea, Denies home oxygen, Denies wheezing Gastrointestinal: Denies abdominal pain, Denies change in bowel habits, Denies coffee ground emesis, Denies early satiety, Denies excessive gas, Denies heartburn, Denies hematemesis, Denies hematochezia, Denies loss of appetite, Denies nausea, Denies vomiting Genitourinary: Denies dysuria, Denies flank pain, Denies kidney stones, Denies menorrhagia, Denies urgency, Denies urinary frequency Musculoskeletal: Denies gait dysfunction, Denies limitation of motion, Denies morning stiffness, Denies muscle cramps Integumentary: Breast abscess Denies wounds, Denies brittle nails, Denies change in hair/nails, Denies darkening of skin Neurological: Denies balance difficulties, Denies change in speech, Denies double vision, Denies gait dysfunction, Denies loss of vision, Denies motor disturbance, Denies numbness, Denies paralysis, Denies paresthesias, Denies seizures Psychiatric: Denies anxiety, Denies depression Endocrine: Denies excessive sweating, Denies excessive thirst, reports high blood sugars, Denies palpitations Hematologic/Lymphatic: Denies easy bruising, Denies lymphadenopathy - Constitutional General appearance: cooperative, no acute distress, obese - EENT Eyes: anicteric sclerae, PERRLA, normal appearance ENT: hearing grossly normal - Neck Neck: no lymphadenopathy, normal ROM, no other, no rigidity, no stridor, no thyromegaly - Respiratory Respiratory: bilateral: CTA, negative: diminished, dullness, rales, rhonchi - Cardiovascular Rhythm: regular Heart sounds: normal: S1, S2 Abnormal Heart Sounds: no systolic murmur, no diastolic murmur, no rub, no S3 Gallop, no S4 Gallop, no click, no other - Gastrointestinal General gastrointestinal: normal bowel sounds, soft - Integumentary Integumentary: Significant induration continues under the right breast nipple with open incision and drainage site draining the purulent discharge. No overlying erythema or warmth noted. - Neurologic Neurologic: CNII-XII intact - Musculoskeletal Musculoskeletal: gait normal, strength equal bilaterally - Psychiatric Psychiatric: A&O x's 3, appropriate affect - Labs CBC & Chem 7: 05/01/19 11:14 05/01/19 11:14 Labs: Abnormal Lab Results - Last 24 Hours (Table) 05/01/19 05/01/19 05/01/19 Range/Units 11:14 11:14 17:19 Chloride 110 H (98-107) mmol/L BUN 3 L (7-17) mg/dL Creatinine 0.46 L (0.52-1.04) mg/dL Glucose 153 H (74-99) mg/dL POC Glucose (mg/dL) 146 H 173 H (75-99) mg/dL C-Reactive Protein 24.7 H (<10.0) mg/L Total Protein 5.9 L (6.3-8.2) g/dL Albumin 3.2 L (3.5-5.0) g/dL 05/01/19 05/02/19 Range/Units 20:58 06:47 Chloride (98-107) mmol/L BUN (7-17) mg/dL Creatinine (0.52-1.04) mg/dL Glucose (74-99) mg/dL POC Glucose (mg/dL) 171 H 151 H (75-99) mg/dL C-Reactive Protein (<10.0) mg/L Total Protein (6.3-8.2) g/dL Albumin (3.5-5.0) g/dL Microbiology - Last 24 Hours (Table) 05/01/19 14:55 Wound Culture - Preliminary Breast - Right 04/30/19 15:10 Blood Culture - Preliminary Blood No Growth after 24 hours Assessment and Plan Plan: #1 Sepsis with lactic acidosis secondary to breast abscess. Consult with general surgery and Dr. Cline appreciated. Continue vancomycin, Dilaudid 0.5 mg every 3 hours status post 2.5 L of IV fluid lactic acid is initially evaluated currently normal. Dr. Alexander plan for I&D tomorrow. #2 History of mild intermittent asthma and COPD. Continue DuoNeb as needed. #3 DVT prophylaxis with the heparin every 12 #4 Insomnia continue melatonin 10 mg daily at bedtime 5. Elevated blood sugars without previous diagnosis of diabetes. Hemoglobin A1c ordered. NovoLog scale ordered. Discharge plan: Return home Impression and plan of care have been directed as dictated by the signing physician. Susan Santana nurse practitioner acting as scribe for signing physician.
[2019-05-02 17:02] LABS: Glucose,Whole Blood 199 mg/dL (75-99)
[2019-05-02 20:44] LABS: Glucose,Whole Blood 235 mg/dL (75-99)
[2019-05-02] MEDS: MELATONIN 5 MG TABLET PO SCH (20:57)
--- NOTE | 2019-05-02 23:42 | PN ---
PROGRESS NOTE DATE OF SERVICE: 05/02/2019 REASON FOR FOLLOWUP: Right breast abscess. INTERVAL HISTORY: The patient is currently afebrile. The patient has been breathing comfortably. Pain to the right breast is currently controlled with pain medication. No further drainage. No chest pain, shortness of breath or cough. No abdominal pain. No diarrhea. PHYSICAL EXAMINATION: Blood pressure 136/76 with a pulse of 70, temperature of 99. She is 95% on room air. General description is a middle-aged female lying in bed in no distress. RESPIRATORY SYSTEM: Unlabored breathing. Clear to auscultation anteriorly. HEART: S1, S2. Regular rate and rhythm. ABDOMEN: Soft. No tenderness. LABS: Blood culture so far negative. The wound cultures are currently pending. DIAGNOSTIC IMPRESSION AND PLAN: Patient with a right breast collection, concern for possible abscess, status post spontaneous drainage. The patient did have a swab currently pending. Awaiting surgical evaluation and surgical drainage and deep cultures. Continue with vancomycin and monitor clinical course closely. Continue with supportive care. MMODL / IJN: [id number] /
[2019-05-03] MEDS: HYDROmorphone 0.5 MG/0.5 ML SYRINGE IVP PRN ×6 (01:46→21:26)
[2019-05-03] MEDS: VANCOMYCIN 1,500 MG in SODIUM CHLORIDE 0.9% 250 ML IVPB SCH ×3 (01:46→19:39)
[2019-05-03 07:06] LABS: Glucose,Whole Blood 163 mg/dL (75-99)
[2019-05-03] MEDS: INSULIN ASPART (NovoLOG) 100 UNIT/ML VIAL SQ SCH ×4 (07:09→20:18)
[2019-05-03] MEDS: HEPARIN SODIUM,PORCINE 5,000 UNIT/ML 1 ML VIAL SQ SCH ×3 (07:10→20:18)
[2019-05-03] MEDS: NICOTINE 14MG/24HR PATCH TRANSDERM SCH (07:22)
[2019-05-03 11:50] LABS: Glucose,Whole Blood 167 mg/dL (75-99)
--- NOTE | 2019-05-03 14:19 | P.DS ---
Providers Date of admission: 05/02/19 09:09 Expected date of discharge: 05/03/19 Attending physician: Khushbu Galdamez MD Consults: 04/30/19 16:24 Consult Physician Urgent Consulting Provider: Vee Alexander Consult Reason/Comments: Breast abscess Do you want consulting provider notified?: Yes 04/30/19 17:09 Consult Physician Routine Consulting Provider: Rubens Cline Consult Reason/Comments: breast abscess, sepsis Do you want consulting provider notified?: Yes, Notify in am Primary care physician: [facility] Course: 43 years old female with past medical history of cervical cancer 2004, asthma, COPD, tobacco use patient wanda Vines presents with significant swelling of her right breast. According to the patient vision or recurrent does the breast abscesses since January of her right lumpectomy. She had a 6 scheduled surgery planned for Thursday with Dr. Preston Javier. Patient came in yesterday since the abscess broke open from the old surgical site was draining a foul-smelling pus. She denies any fever or chills. Patient denied any palpitation or chest pain. On assessment of vitals in the ER patient was found to be tachycardic with a pulse rate of 111 and respiratory rate of 20 with a leukocytosis of 16.7 patient med the septic criteria was admitted for sepsis with IV vancomycin and the Zosyn. Surgery consulted for possible I&D. 05/02: Patient has been seen by Dr. Cline with recommendations for vancomycin, Aquacel Ag dressing to the wound be changed daily. Wound cultures are in progress. Patient has been seen by Dr. Buck and additionally she recommends cold and warm packs to the breast for comfort. Dr. Preston Javier will be notified of this case which is a surgical case for May 03. Patient has been afebrile, blood pressure 143/93, heart rate 77, pulse ox 95% on room air. Blood sugars are running between 150 - 173. The patient has not been diagnosed with diabetes. Hemoglobin A1c ordered. C-reactive protein is 24.7 and sed rate 16. Breast area remains indurated. She is scheduled for I&D tomorrow. Possible discharge tomorrow or Thursday. 05/03: Wound culture showing moderate polymorphonuclear leukocytes, no organisms seen. No growth after 24 hours. Blood cultures no growth after 48 hours. Patient is scheduled for I&D late today. We are planning for discharge home following procedure. Dr. Preston Javier is in agreement. She has provided the patient with prescriptions handwritten for Augmentin and Diflucan both for 5 days and [place]. The patient will be discharged after procedure if she remains stable and cleared by Dr. Preston Javier. Discharge diagnoses: #1 Sepsis with lactic acidosis secondary to breast abscess. #2 History of mild intermittent asthma and COPD, no exacerbation. #3 Insomnia 5. Elevated blood sugars without previous diagnosis of diabetes. Hemoglobin A1c pending. Discharge plan: Return home Impression and plan of care have been directed as dictated by the signing physician. Susan Santana nurse practitioner acting as scribe for signing physician. Patient Condition at Discharge: Good Plan - Discharge Summary New Discharge Prescriptions: No Action diphenhydrAMINE [Benadryl] 75 mg PO HS Melatonin 10 mg PO HS Discharge Medication List Melatonin 10 mg PO HS 01/25/19 [History] diphenhydrAMINE [Benadryl] 75 mg PO HS 01/25/19 [History] Follow up Appointment(s)/Referral(s): Vee Alexander MD [STAFF PHYSICIAN] - 05/13/19 1:20 pm ( ) [facility], [NON-STAFF] - Keyon Peralta MD [Primary Care Provider] - 05/09/19 1:15 pm Rubens Cline MD [STAFF PHYSICIAN] - 1 Week Discharge Disposition: HOME SELF-CARE
[2019-05-03] MEDS: AMPICILLIN-SULBACTAM 3 GM in SODIUM CHLORIDE 0.9% 100 ML IVPB SCH ×2 (14:32→21:49)
[2019-05-03 16:31] LABS: Glucose,Whole Blood 135 mg/dL (75-99)
[2019-05-03] MEDS ORDERED: IV FLUID CONTINUATION 1,000 ML IV ONE (16:45)
--- NOTE | 2019-05-03 16:59 | P.PN ---
Progress Note - Text Progress Note Date: 05/03/19 Nadia is a 43-year-old white female who was admitted over the weekend with sepsis related to right breast abscess. The abscess began draining spontaneously and she presented to the emergency room. She was admitted and received IV antibiotics. The patient was seen today she continues to have some drainage from the area of the abscess site which is not completely drained. She was afebrile, and her white count has normalized. It is still recommended the patient undergo I&D in the operating room of the area of concern and deep culture will be obtained. The patient understands and wishes to proceed. She understands risks include bleeding, infection and reaction to the anesthetic. She also understands that this will be left open with packing. She understands that she may have recurrence of the abscess. I have talked to infectious disease Dr. Cline regarding antibiotic choice for discharge. He had suggested that she should stay in the hospital until cultures have come back however the patient has declined to stay. Therefore she understands that we may need to change her antibiotics and when cultures come back she may need to be readmitted. At this time she has agreed to incision and drainage of the area and she will follow-up as an outpatient. Physical exam: Right breast: In the periareolar area there remains firmness with some drainage at this site. No evidence of cellulitis Impression: Incomplete drained right breast abscess Plan: I&D of abscess right breast in the OR Please see history and physical for patient's further medical history
[2019-05-03] MEDS ORDERED: MIDAZOLAM 2 MG/2 ML VIAL ONE (17:09)
[2019-05-03] MEDS ORDERED: HYDROmorphone (PF) 1 MG/ML ONE (17:09)
[2019-05-03] MEDS ORDERED: fentaNYL (PF) 50 MCG/ML 2 ML AMP ONE (17:09)
[2019-05-03] MEDS ORDERED: KETOROLAC 30 MG/ML 1 ML VIAL ONE (17:09)
[2019-05-03] MEDS ORDERED: PROPOFOL 10 MG/ML 20 ML VIAL IV ONE (17:09)
[2019-05-03] MEDS ORDERED: LIDOCAINE 1% INJ 10MG/ML (20 ML MDV) ONE (17:09)
[2019-05-03] MEDS ORDERED: LACTATED RINGERS 1,000 ML IV ONE (17:36)
--- NOTE | 2019-05-03 18:13 | P.OP ---
Date of Procedure: 05/03/19 Preoperative Diagnosis: Excision of lesion left axilla, incision and drainage of right breast abscess Postoperative Diagnosis: Left axillary abscess, chronic abscess in the right breast 13 x 8 cm in size Procedure(s) Performed: Excision left axillary cystic lesion/I&D of abscess left axilla, right breast incision and drainage and removal of portion of the infected cyst wall cavity Anesthesia: GIBRANA Surgeon: Vee Alexander Estimated Blood Loss (ml): 5 IV fluids (ml): 500 Pathology: other (wall infected cyst cavity, cultures obtained. The breast abscess, left axillary abscess) Condition: stable Disposition: floor Indications for Procedure: Chronic right breast abscess, left axillary swelling thought to be cyst, painful Operative Findings: Infected left axillary cyst, chronic right breast abscess partially drained Description of Procedure: The patient was taken to the operating room and following induction of anesthesia the left axilla and right breast were prepped and draped in a sterile fashion. The left axilla was approached initially. An incision was made circumscribing the area of concern in the left axilla. In so doing the area was entered and purulent drainage was noted. Cultures were obtained. The cystic lesion itself was excised. The wound was well irrigated. One nylon suture was placed in the wound was packed open. The left axillary cyst was approximately 1 cm x 8 mm. The right breast was approached. An incision was made in the periareolar area over the area of induration. Sero-purulent drainage was identified and cultures were obtained. The area was loculated and the loculations were broken down using blunt dissection. To facilitate this was necessary to remove part of the firm wall of the cystic area. This was accomplished using the electrocautery device. After we were assured that hemostasis was attained the wound was well irrigated. This was packed open using 2 inch iodoform gauze. The patient tolerated the procedure in stable condition. The abscess cavity was approximately 13 cm x 2 cm in size. The patient tolerated the procedure in stable condition. All instrument and sponge counts were correct at the end of the case.
--- NOTE | 2019-05-03 18:40 | PN ---
PROGRESS NOTE DATE OF SERVICE: 05/03/2019. REASON FOR FOLLOWUP: Right breast abscess. INTERVAL HISTORY: The patient was seen on rounds this morning. The patient is scheduled for drainage of the right breast abscess per the surgeon this afternoon. Apparently the patient did have an outpatient culture positive for peptostreptococcus and the surgeon would like to discharge the patient on oral Augmentin after drainage instead of waiting for the culture. The patient at the time of evaluation early this afternoon denies any worsening pain in the right breast area. No further drainage. No chest pain, shortness of breath or cough. No nausea, no vomiting, no abdominal pain or diarrhea. PHYSICAL EXAMINATION: Blood pressure 151/83 with a pulse of 62, temperature 98.2. She is 97% on room air. General description is a middle-aged female lying in bed in no distress. RESPIRATORY SYSTEM: Unlabored breathing. Clear to auscultation anteriorly. HEART: S1, S2. Regular rate and rhythm. ABDOMEN: Soft. No tenderness. LABS: The right breast culture obtained has been negative so far. DIAGNOSTIC IMPRESSION AND PLAN: Patient with right breast abscess, incompletely drained, scheduled for OR drainage of this abscess later this afternoon with deep cultures; afterwards possible discharge on oral Augmentin. The patient is aware of the fact we may not be sending her home on the right antibiotic, as we are not waiting for the cultures. She is agreeable and mentioned she will come back if there is no improvement, as the patient does have a history of KEFLEX ALLERGY, but no anaphylaxis. She will be started on Unasyn here to make sure she tolerates Unasyn before discharging her on oral Augmentin. MMODL / IJN: [id number] /
[2019-05-03 19:58] LABS: Glucose,Whole Blood 122 mg/dL (75-99)
[2019-05-03] MEDS: MELATONIN 5 MG TABLET PO SCH (21:49)
[2019-05-04] MEDS: HYDROmorphone 0.5 MG/0.5 ML SYRINGE IVP PRN ×4 (00:37→10:37)
[2019-05-04] MEDS: AMPICILLIN-SULBACTAM 3 GM in SODIUM CHLORIDE 0.9% 100 ML IVPB SCH ×2 (01:33→07:24)
[2019-05-04] MEDS: VANCOMYCIN 1,500 MG in SODIUM CHLORIDE 0.9% 250 ML IVPB SCH (02:06)
[2019-05-04 07:12] LABS: Glucose,Whole Blood 137 mg/dL (75-99)
[2019-05-04] MEDS: INSULIN ASPART (NovoLOG) 100 UNIT/ML VIAL SQ SCH (07:22)
[2019-05-04] MEDS: HEPARIN SODIUM,PORCINE 5,000 UNIT/ML 1 ML VIAL SQ SCH (07:25)
[2019-05-04] MEDS: NICOTINE 14MG/24HR PATCH TRANSDERM SCH (07:25)
[2019-05-04 07:32] VITALS: BP 138/88; PULSE 71; RESP 16; TEMP 98.4
[2019-05-04 07:42] LABS: African American GFR (CKD) >90 (>60 ml/min/1.73 sqM)
--- NOTE | 2019-05-04 19:38 | PN ---
PROGRESS NOTE DATE OF SERVICE: 05/04/2019 REASON FOR FOLLOWUP: Right breast abscess. INTERVAL HISTORY: The patient was seen on rounds this morning. The patient has been afebrile. The patient is status post drainage of a large right breast abscess. The patient tolerated the procedure. Pain is currently controlled. No nausea, no vomiting. No abdominal pain and no diarrhea. PHYSICAL EXAMINATION: Blood pressure is 132/88 with a pulse of 71, temperature 98.4. She is 94% on room air. General description is a middle-aged female lying in bed in no distress. RESPIRATORY SYSTEM: Unlabored breathing. Clear to auscultation anteriorly. HEART: S1, S2. Regular rate and rhythm. ABDOMEN: Soft. No tenderness. LABS: Cultures obtained yesterday are currently pending. DIAGNOSTIC IMPRESSION AND PLAN: Patient with right breast abscess with outpatient culture apparently positive for peptostreptococcus as per surgeon. She did have a drainage procedure yesterday and is getting discharged today. Plan on Augmentin 875 b.i.d. for 2 weeks, as the patient tolerated Unasyn without any problem. ALLERGY TO KEFLEX has been yeast infection and not a true allergy. MMODL / IJN: [id number] /
--- NOTE | 2019-05-05 11:20 | CDI ---
Documentation Clarification Form Date: 05/05/19 From: [place] Phone: If you have a question regarding this query, please contact Desi Anguiano at [phone] between 8am and 5pm. Admit Date: 05/02/2019 9:09:00 AM Patient Name: Nadia Fontana Visit Number: [id number] Discharge Date: 05/04/2019 10:52:00 AM ATTENTION: The Clinical Documentation Specialists (CDI) and [facility] Coding Staff appreciate your assistance in clarifying documentation. Please respond to the clarification below the line at the bottom and electronically sign. The CDI & [facility] Coding staff will review the response and follow-up if needed. Please note: Queries are made part of the Legal Health Record. If you have any questions, please contact the author of this message via ITS. Dr. Khushbu Galdamez Documentation states: Documentation in the discharges summary states elevated blood sugars without previous diagnosis of diabetes. Hemoglobin A1C pending. History/Risk Factors: Morbid Obesity Clinical indicators: Elevated blood sugar Abnormal lab: Glucose 227 and 153. POC glucose 122 - 235. Hgb A1c 9.0. Treatment: Novolog Clinical significance of diagnostic testing and treatment CANNOT be assumed or coded without physician documentation of significance if any. Please clarify what abnormal laboratory signifies: Disease process, please specify Infectious process, please specify Abnormal Lab Value Unable to determine Other, please specify type 2 DM MTDD
--- NOTE | 2019-05-12 17:07 | CDI ---
Documentation Clarification Form Date: 05/12/19 From: [place] Phone: If you have a question regarding this query, please contact Desi Anguiano at [phone] between 8am and 5pm. Admit Date: 05/02/2019 9:09:00 AM Patient Name: Nadia Fontana Visit Number: [id number] Discharge Date: 05/04/2019 10:52:00 AM ATTENTION: The Clinical Documentation Specialists (CDI) and [facility] Coding Staff appreciate your assistance in clarifying documentation. Please respond to the clarification below the line at the bottom and electronically sign. The CDI & [facility] Coding staff will review the response and follow-up if needed. Please note: Queries are made part of the Legal Health Record. If you have any questions, please contact the author of this message via ITS. Dr. Khushbu Galdamez Patient came in yesterday since the abscess broke open from the old surgical site was draining a foul-smelling pus is documented in the ED note, H&P, discharge summary and your 05/02 progress note. Patients Admitting Diagnosis: Right breast abscess Post-Operative Diagnosis: Chronic abscess in the right breast Procedure performed: Excision left axillary cysti lesion and I&D of abscess of right breast. History/Risk Factors: Breast abscess of her right lumpectomy since January. Clinical Indicators: Abscess broke open from old surgical site and was draining a foul-smelling pus. Treatment: I&D of abscess, IV Zosyn and IV Vancomycin Consults: Documented breast abscess. In order to accurately reflect this patients severity of illness, please clarify if the abscess of the right breast is the result of the surgical procedure? Yes No Other, please specify Unable to determine unable to determine, query to be assigned to Dr. Nathan pan MTDD
--- NOTE | 2019-05-27 15:25 | CDI ---
Documentation Clarification Form The abscess was patients prior chronic disease. It was not from the surgery, but treated by the surgery. Date: 05/27/19 From: [place] Phone: If you have a question about this query, please contact Desi Anguiano, [employer] at [phone] between 8am and 5pm. Admit Date: 05/02/19 Discharge Date: 05/04/19 Patient Name: Nadia Fontana Visit Number: [id number] ATTENTION: The Clinical Documentation Specialists (CDI) and [facility] Coding Staff appreciate your assistance in clarifying documentation. Please respond to the clarification below the line at the bottom and electronically sign. The CDI & [facility] Coding staff will review the response and follow-up if needed. Please note: Queries are made part of the Legal Health Record. If you have any questions, please contact the author of this message via ITS. Dear Dr Flex Alexander Patient came in yesterday since the abscess broke open from the old surgical site was draining a foul-smelling pus is documented in the ED note, H&P, discharge summary and your 05/02 progress note. Patients Admitting Diagnosis: Right breast abscess Post-Operative Diagnosis: Chronic abscess in the right breast Procedure performed: Excision left axillary cysti lesion and I&D of abscess of right breast. History/Risk Factors: Breast abscess of her right lumpectomy since January. Clinical Indicators: Abscess broke open from old surgical site and was draining a foul-smelling pus. Treatment: I&D of abscess, IV Zosyn and IV Vancomycin Consults: Documented breast abscess. In order to accurately reflect this patients severity of illness, please clarify if the abscess of the right breast is the result of the surgical procedure? Yes No Other, please specify Unable to determine MTDD
== END 2019-05-04 10:52 | disposition home or self-care (01) | DRG 854 ==
LOC: EC 14:29 → 4SSUR 16:44 → OBSVTOIN 05-02 09:09
PROVIDERS: ADMIT Internal Medicine; ATTEND Internal Medicine
PROC: 0H9T0ZZ Drainage of Right Breast, Open Approach (ICD-10-PCS; 2019-05-03)
PROC: 0X950ZZ Drainage of Left Axilla, Open Approach (ICD-10-PCS; 2019-05-03)
PROC: 0XB50ZZ Excision of Left Axilla, Open Approach (ICD-10-PCS; principal; 2019-05-03 16:25)
DX: A41.9 Sepsis, unspecified organism (principal); L02.412 Cutaneous abscess of left axilla; E66.01 Morbid (severe) obesity due to excess calories; L72.9 Follicular cyst of the skin and subcutaneous tissue, unspecified; N61.1 Abscess of the breast and nipple; E11.9 Type 2 diabetes mellitus without complications; F17.200 Nicotine dependence, unspecified, uncomplicated; F41.9 Anxiety disorder, unspecified; G47.00 Insomnia, unspecified; J44.9 Chronic obstructive pulmonary disease, unspecified; J45.20 Mild intermittent asthma, uncomplicated; Z68.37 Body mass index [BMI] 37.0-37.9, adult; Z85.41 Personal history of malignant neoplasm of cervix uteri; Z79.899 Other long term (current) drug therapy; Z88.6 Allergy status to analgesic agent; Z88.5 Allergy status to narcotic agent; Z88.1 Allergy status to other antibiotic agents; Z80.49 Family history of malignant neoplasm of other genital organs
CPT/HCPCS: 36410; 36415; 76937; 80053; 80202; 81001; 81025; 82565; 83036; 83605; 85025; 85610; 85652; 85730; 86140; 87040; 87070; 87075; 87077; 87186; 87205; 88304; 93005; 96365; 96367; 99284

== ENCOUNTER → 2019-05-05 | Outpatient (CLI) | payer MEDICARE, OTHER ==
[2019-05-05 11:20] VITALS: BP 141/91; PULSE 80; RESP 20; TEMP 98.6; BMI 36.6
--- NOTE | 2019-05-05 11:55 | P.PN ---
Progress Note - Text Progress Note Date: 05/05/19 Nadia is status post right breast incision and drainage of abscess on . Additionally a cystic lesion was removed from the left axilla which had purulent discharge in it. The patient at this time is doing very well. The packing was changed yesterday by the nursing staff and she has an Aquacel silver was opened in the right breast at this time. There is moderate drainage from the site but no purulence. Cultures of this point are no growth. The area of the left axilla is to be packed as well. The patient is not had any fever or chills. His no evidence of any erythema on the breast. The patient was seen in the hospital by Dr. douglas from infectious disease. She was sent home on Augmentin. The patient wishes to resume work on Thursday and we will attempt to get clearance from Dr. Cline. Physical exam: Heart: Regular rate and rhythm Lungs: Decreased breath sounds at the bases greater on the left than on the right Incision right breast: No evidence of erythema wound appears to be healing well Aquacel silver will position place with some moderate drainage. No evidence of purulence Left axilla: Incision is clean and dry Impression: 1. Patient recovering status post incision and drainage right breast abscess which was approximately 13 cm x 8 cm in size 2. Excision of infected cyst left axilla. Plan: 1. Continue dressing changes 2. Continue follow-up with infectious disease 3. Patient wishes to return to work on Thursday we will talk to infectious disease to see if this would be acceptable CC: DR. Peralta
== END | disposition home or self-care (01) ==
LOC: WWCWWP 10:30
PROVIDERS: ATTEND Surgery
DX: Z53.9 Procedure and treatment not carried out, unspecified reason (principal)

== ENCOUNTER → 2019-05-13 | Outpatient (CLI) | payer MEDICARE, OTHER ==
[2019-05-13 13:48] VITALS: BP 132/91; PULSE 100; RESP 20; TEMP 98.1; BMI 36.6
--- NOTE | 2019-05-13 14:12 | P.PN ---
Subjective Progress Note Date: 05/13/19 Principal diagnosis: Nadia 43-year-old white female status post I&D of a right breast abscess and left axillary abscess nodule performed on 05-03-19. There continues to be packed. She has had no fever or chills. She does have some mild discharge from both areas however there is no evidence of any cellulitis or loculated areas. The areas are going to be packed with Aquacel silver cord. Objective - Vital Signs Vital signs: Vital Signs Temp 98.1 F 05/13/19 13:46 Pulse 100 05/13/19 13:46 Resp 20 05/13/19 13:46 BP 132/91 05/13/19 13:46 Pulse Ox 93 L 05/13/19 13:46 Intake & Output 05/12/19 05/13/19 05/13/19 18:59 06:59 18:59 Weight 96.615 kg - Exam BMI 36.6 - Constitutional General appearance: Present: obese - EENT Eyes: Present: poor dentition ENT: Present: hearing grossly normal - Respiratory Respiratory: bilateral: CTA - Cardiovascular Rhythm: regular Heart sounds: normal: S1, S2 - Psychiatric Psychiatric: Present: A&O x's 3 - Additional findings Additional findings: Breast exam: Incision site is open it continues to be packed there is some discharge on the granulation tissue but this is open draining and being packed with no difficulty Left axilla: Incision is opened the base is granulating suture to be removed no evidence of any cellulitis Assessment and Plan Assessment: Impression: 1. Right breast abscess healing 2. Left axilla cystic abscess area healing 3. Recent diagnosis of diabetes recently started on metformin Plan: 1. Continue present therapy patient has been seen by infectious disease 2. Patient will follow hearing 3 weeks time CC: Dr. Peralta
== END ==
LOC: WWCWWP 13:34
PROVIDERS: ATTEND Surgery
DX: Z53.9 Procedure and treatment not carried out, unspecified reason (principal)

== ENCOUNTER → 2019-06-03 | Outpatient (CLI) | payer MEDICARE, OTHER ==
[2019-06-03 12:13] VITALS: BP 115/77; PULSE 85; RESP 18; TEMP 97.9; BMI 36.6
--- NOTE | 2019-06-03 14:14 | P.PN ---
Subjective Progress Note Date: 06/03/19 Principal diagnosis: right breast abscess/ left axillary cyst The patient is a 43 year old white female status post I&D of a right brest abscess on 05-03-19. She was doing well until about 1 week ago when she noted increased discomfort in her bilateral medial breast extending onto the anterior abdominal wall. She has not had any fever or chills. She states the home care providers had been using a pad between her breast and it is the location of where the pad touched her skin that she is having redness. PE: lungs: inspiratory wheezing heart: clear Right breast: incision clean and packing changed, granulation well area of erythema 10 cm right lower breast, 13 cm onto abd wall, 7 cm left inferior medial breast packing changed Objective - Vital Signs Vital signs: Vital Signs Temp 97.9 F 06/03/19 12:08 Pulse 85 06/03/19 12:08 Resp 18 06/03/19 12:08 BP 115/77 06/03/19 12:08 Pulse Ox 96 06/03/19 12:08 Intake & Output 06/02/19 06/03/19 06/03/19 18:59 06:59 18:59 Weight 96.615 kg Assessment and Plan Assessment: Impression: 1. right breast abscess drained 05-03-19 2. erythema lower inner breast/ abd wall ( fungal infection vs. contact dermatitis) Plan: 1. continue present wound care 2. nystatin to affected skin area 3. appt. infectious disease 4. consider appt. dermatology 5. follow up here next week 6. go to ER if gets worse
== END | disposition home or self-care (01) ==
LOC: WWCWWP 10:42
PROVIDERS: ATTEND Surgery
DX: Z53.9 Procedure and treatment not carried out, unspecified reason (principal)

== ENCOUNTER → 2019-06-08 | Outpatient (CLI) | payer MEDICARE, OTHER ==
[2019-06-08 12:13] VITALS: PULSE 84; RESP 16; TEMP 98.4; BMI 37.0
--- NOTE | 2019-06-08 13:08 | P.PN ---
Progress Note - Text Progress Note Date: 06/08/19 This is a 43-year-old white female status post incision and drainage of abscess in the right breast performed on . Of abscess was healing well however she noted marked erythema of the medial aspect of both breasts and was seen on . At that time she was started on nystatin. The area of erythema has markedly improved. She is followed with infectious disease who feels that everything is healing well. Patient is not complaining of any fever or chills. Time Physical exam: Lungs: Inspiratory wheezing left base Heart: Regular rate and rhythm Right breast area of abscess is clean and dry and well-healed Markedly decreased erythema between the breast Impression: 1. Healing right breast abscess 2. Improvement of most likely fungal infection between the breast 3. Patient again counseled on stopping smoking Plan: 1. Continue care of right breast abscess 2. Continue nystatin application 3. Continue follow with infectious disease 4. Patient is continuing to decrease her smoking 5. Follow-up in 2 weeks
== END | disposition home or self-care (01) ==
LOC: WWCWWP 11:49
PROVIDERS: ATTEND Surgery
DX: Z53.9 Procedure and treatment not carried out, unspecified reason (principal)

== ENCOUNTER → 2019-06-24 | Outpatient (CLI) | payer MEDICARE, OTHER ==
[2019-06-24 12:40] VITALS: BP 135/82; PULSE 81; RESP 18; TEMP 97.9; BMI 36.6
--- NOTE | 2019-06-24 12:49 | P.PN ---
Subjective Progress Note Date: 06/24/19 Principal diagnosis: status post I&D abscess right breast Nadia is a 42-year-old white female status post incision and drainage of abscess in the right breast performed on . The area continues to be packed. She has no complaints at this time. She has no fever or chills. Physical exam: Healing right breast abscess, the depth of the defect was probed with a sterile Q-tip and was approximately 2 cm Plan: 1. Continue present therapy 2. Follow-up in 1 month at which time we will order bilateral mammograms Cc: Objective - Vital Signs Vital signs: Vital Signs Temp 97.9 F 06/24/19 12:37 Pulse 81 06/24/19 12:37 Resp 18 06/24/19 12:37 BP 135/82 06/24/19 12:37 Pulse Ox 95 06/24/19 12:37 Intake & Output 06/23/19 06/24/19 06/24/19 18:59 06:59 18:59 Weight 96.615 kg
== END ==
LOC: WWCWWP 12:05
PROVIDERS: ATTEND Surgery
DX: Z53.9 Procedure and treatment not carried out, unspecified reason (principal)

== ENCOUNTER → 2019-09-16 | Outpatient (CLI) | payer MEDICARE, OTHER ==
--- NOTE | 2019-09-19 08:22 | MM ---
Reason for exam: screening (asymptomatic). Baseline mammogram. History: Patient history of other cancer and had first child at age 39. Family history of breast cancer in maternal grandmother. Benign US breast aspiration ea add RT of the right breast, April 20, 2019. Benign US biopsy breast VAD RT of the right breast, April 20, 2019. Benign excisional biopsy of the right breast, February 01, 2019. Physical Findings: Nurse did not find any significant physical abnormalities on exam. MG 3D Diag Mammo W/Cad ABBI Bilateral CC and MLO view(s) were taken. There are scattered fibroglandular densities. Benign appearing bilateral calcifications. No suspicious abnormality. Right nipple inversion from prior surgery at site of scar. These results were verbally communicated with the patient and result sheet given to the patient on 09/16/19. ASSESSMENT: Benign, BI-RAD 2 RECOMMENDATION: Routine screening mammogram of both breasts in 1 year.
== END | disposition home or self-care (01) ==
LOC: RADMAMWWP 14:34
PROVIDERS: ATTEND Surgery
DX: R92.8 Other abnormal and inconclusive findings on diagnostic imaging of breast (principal); N63.0 Unspecified lump in unspecified breast
CPT/HCPCS: 77066; G0279; 77062

== ENCOUNTER → 2019-10-12 | Outpatient (CLI) | payer MEDICARE, OTHER ==
--- NOTE | 2019-10-12 11:38 | XR ---
EXAMINATION TYPE: XR chest 2V DATE OF EXAM: 10/12/2019 COMPARISON: NONE HISTORY: R 76.11, tuberculosis screening TECHNIQUE: Frontal and lateral views of the chest are obtained. FINDINGS: There is no focal air space opacity, pleural effusion, or pneumothorax seen. The cardiac silhouette size is within normal limits. The osseous structures are intact, thoracic spondylosis, s coliosis noted convex left. IMPRESSION: No acute cardiopulmonary process.
== END | disposition home or self-care (01) ==
LOC: RADXRMAIN 10:23
PROVIDERS: ATTEND Internal Medicine
DX: R76.11 Nonspecific reaction to tuberculin skin test without active tuberculosis (principal)
CPT/HCPCS: 71046

== ENCOUNTER → 2019-11-22 | Outpatient (CLI) | payer MEDICARE, OTHER ==
--- NOTE | 2019-11-22 12:20 | P.PN ---
Subjective Progress Note Date: 11/22/19 Principal diagnosis: right breast swelling 44-year-old white female who was initially seen in January 2019 with a right breast abscess. She had operative incision and drainage on 2 occasions the last being in April 2019 she has had the area packed until recently and then 2 weeks ago she noted a golf ball size swelling in the breast. Cultures in May 2019 revealed staph epidermidis with no PMNs seen. She also had rare anaerobic gram-positive bacilli. No anaerobes were isolated. She has not had any fever or chills. He has been draining for approximately 1 week. There is clean and bloody in nature. She states the area is painful and the golf ball size lesion is in creased in size. Patient did have bilateral mammogram September 2019 which was benign BIRADS 2 Family History: mother: breast cancer maternal grandmother: breast cancer Surgical history: 1. Cholecystectomy 2. Back surgery 3. I&D of breast abscess times two 4. Uterine ablation 5. Tubal ligation Medical history: 1. Asthma 2. Tachycardia 3. boarderline diabeitc ? Review of systems: HEENT: Negative Lungs: Asthma Heart: Tachycardia GI: Status post cholecystectomy : Uterine ablation Musculoskeletal: Prior BX surgery/arthritis Neurologic: Negative Psychologic: Negative. Hematologic: none ALLERGIES: morphine, Flagyl/caused hives Social history: Smoke: 6 cigarettes a day Alcohol: Negative Drugs: Negative Objective - Vital Signs Vital signs: Vital Signs Temp 98.0 F 11/22/19 11:05 Pulse 101 H 11/22/19 11:05 Resp 18 11/22/19 11:05 BP 129/79 11/22/19 11:05 Pulse Ox 94 L 11/22/19 11:05 Intake & Output 11/21/19 11/22/19 11/22/19 18:59 06:59 18:59 Weight 96.615 kg - Exam BMI 36.6 - Constitutional General appearance: Present: obese - EENT Eyes: Present: EOMI ENT: Present: hearing grossly normal - Neck Neck: Present: normal ROM - Respiratory Details: Rhonchi, inspiratory wheezing - Cardiovascular Rhythm: regular Heart sounds: normal: S1, S2 - Gastrointestinal Gastrointestinal Comment(s): No guarding or rebound No organomegaly General gastrointestinal: Present: soft - Integumentary Integumentary: Present: normal turgor - Musculoskeletal Musculoskeletal: Present: gait normal - Psychiatric Psychiatric: Present: A&O x's 3, appropriate affect, intact judgment & insight - Additional findings Additional findings: Breast examination: Right breast, multiple positional exam: Small opening in the periareolar region the prior I&D's and the abscesses have been performed There is drainage of turbulent colored fluid from this site There is no evidence of any erythema There is tenderness to palpation in the 3 o'clock position of the breast but no discrete palpable masses noted No other masses noted in the breast Right axilla: No adenopathy of concern Left breast: Positional exam no dominant masses or nodules of concern Left axilla: No adenopathy of concern Assessment and Plan Assessment: Impression: 1. Recurrent abscess of the right breast 2. No discrete palpable mass noted at this time 3. Patient has drainage from the prior incision and drainage site 4. No lesions of concern noted in the left breast The patient did have bilateral mammogram in September 2019 which was benign BIRADS 2 Plan: Plan: 1. Obtain cultures right breast 2. Ultrasound right breast 3. Consider incision and drainage in the operating room if necessary 4. Will empirically start patient on Keflex and give patient Diflucan, she developed a yeast infection on her last course of Keflex 5. Follow-up next week after ultrasound 6. At this time continue warm compresses to the breast The patient is not having any fever or chills, and does not have any evidence of erythema at the area of the drainage. There is no discrete palpable lesion for incision and drainage. She will follow up in one week. Right breast: The area of concern was evaluated and cultures were obtained of the fluid which is draining. These will be sent for evaluation. Aerobic and anaerobic. CC: Dr. Osorio Time with Patient: Greater than 30
[2019-11-22 13:22] VITALS: BP 129/79; PULSE 101; RESP 18; TEMP 98
== END | disposition home or self-care (01) ==
LOC: WWCWWP 10:04
PROVIDERS: ATTEND Surgery
DX: N61.1 Abscess of the breast and nipple (principal)
CPT/HCPCS: 87070; 87075; 87205

== ENCOUNTER → 2019-11-23 | Outpatient (CLI) | payer MEDICARE, OTHER ==
--- NOTE | 2019-11-30 10:27 | USB ---
Reason for exam: clinical finding. History: Patient history of other cancer and had first child at age 39. Family history of breast cancer in mother at age 48 and breast cancer in maternal grandmother. Benign US breast aspiration ea add RT of the right breast, April 20, 2019. Benign US biopsy breast VAD RT of the right breast, April 20, 2019. Benign excisional biopsy of the right breast, February 01, 2019. Indicated problem(s): non-bloody discharge in the right breast. Physical Findings: Nurse did not find any significant physical abnormalities on exam. US Breast RT Right complete breast ultrasound includes all four quadrants, the retroareolar region and axilla. Finding demonstrates a 5.1 x 1.3 x 2.2cm irregular, mixed lesion at the posterior nipple, some adjacent vascularity and a 7mm shadowing echogenic focus within the fluid collection could be dystrophic calcification or some air introduced after sampling performed yesterday. These results were verbally communicated with the patient and result sheet given to the patient on 11/23/19. ASSESSMENT: Probably benign, BI-RAD 3 RECOMMENDATION: Surgical consultation of the right breast. (breast abscess) Called office with mammographic findings and has scheduled an appointment for the patient for 11/29/19 at 9:[address] Alexander. PRELIMINARY REPORT CALLED AND FAXED TO DR. ALEXANDER ON 11/30/19. Ultrasound of the right breast in 2 months.
== END | disposition home or self-care (01) ==
LOC: RADUSWWP 10:09
PROVIDERS: ATTEND Surgery
DX: N64.52 Nipple discharge (principal)

== ENCOUNTER → 2019-12-08 | Outpatient (CLI) | payer MEDICARE, OTHER ==
--- NOTE | 2019-12-08 10:06 | P.PN ---
Subjective Progress Note Date: 12/08/19 Principal diagnosis: right breast abscess 44-year-old white female who was initially seen in January 2019 with a right breast abscess. She had operative incision and drainage on 2 occasions the last being in April 2019 she has had the area packed until recently and then 2 weeks prior to 11-22-19 she noted a golf ball size swelling in the breast. Cultures in May 2019 revealed staph epidermidis with no PMNs seen. She also had rare anaerobic gram-positive bacilli. No anaerobes were isolated. She has not had any fever or chills. She has been draining from the site intermittently since she noted the swelling about one month ago. She was placed on an antibiotic regimen of Keflex and cultures were obtained. Cultures revealed a few gram-positive cocci as well as PMNs and where normal skin porfirio. She was also noted to have a few anaerobic gram-negative bacilli. There is clean and bloody in nature. She states it remains painful but has not changed in size. Ultrasound was performed which was consistent with an abscess. Patient did have bilateral mammogram September 2019 which was benign BIRADS 2 Family History: mother: breast cancer maternal grandmother: breast cancer Surgical history: 1. Cholecystectomy 2. Back surgery 3. I&D of breast abscess times two 4. Uterine ablation 5. Tubal ligation Medical history: 1. Asthma 2. Tachycardia 3. boarderline diabeitc ? Review of systems: HEENT: Negative Lungs: Asthma Heart: Tachycardia GI: Status post cholecystectomy : Uterine ablation Musculoskeletal: Prior BX surgery/arthritis Neurologic: Negative Psychologic: Negative. Hematologic: none ALLERGIES: morphine, Flagyl/caused hives Social history: Smoke: 6 cigarettes a day Alcohol: Negative Drugs: Negative Objective - Constitutional General appearance: Present: obese - EENT Eyes: Present: EOMI ENT: Present: hearing grossly normal - Neck Neck: Present: normal ROM - Respiratory Respiratory: bilateral: CTA - Cardiovascular Rhythm: regular Heart sounds: normal: S1, S2 - Gastrointestinal General gastrointestinal: Present: normal bowel sounds, soft - Musculoskeletal Musculoskeletal: Present: gait normal - Psychiatric Psychiatric: Present: A&O x's 3, appropriate affect, intact judgment & insight - Additional findings Additional findings: breast exam: BRA 44DDD inspection: bilateral grade 3 ptosis, scar right breast periaeoralar area Palpation: Right breast: Decreased swelling at the area over the prior abscess was present, well-healed scar from prior I&D site the area of firmness at the prior abscess area is in the periareolar upper inner region no other dominant masses or nodules of concern Assessment and Plan Assessment: Impression: 1. Recurrent chronic right breast abscess 2. Area of concern seems to have decreased in size at this time with antibiotic treatment Plan: 1. Repeat ultrasound right breast to ascertain if area of abscess has decreased 2. Continue antibiotic therapy 3. Possible incision and drainage in the operating room of the right breast Cc: Dr. Osorio encounter 15 minutes, > 50% of time in planning and counselling Time with Patient: Less than 30
[2019-12-08 10:08] VITALS: BP 123/83; PULSE 94; RESP 18; TEMP 98.4
== END | disposition home or self-care (01) ==
LOC: WWCWWP 09:36
PROVIDERS: ATTEND Surgery
DX: Z53.9 Procedure and treatment not carried out, unspecified reason (principal)

== ENCOUNTER → 2019-12-21 | Outpatient (CLI) | payer MEDICARE, OTHER ==
--- NOTE | 2019-12-22 08:07 | USB ---
Reason for exam: clinical finding. History: Patient history of other cancer and had first child at age 39. Family history of breast cancer in mother at age 48 and breast cancer in maternal grandmother. Benign US breast aspiration ea add RT of the right breast, April 20, 2019. Benign US biopsy breast VAD RT of the right breast, April 20, 2019. Benign excisional biopsy of the right breast, February 01, 2019. Indicated problem(s): skin thickening or retraction and lump or thickening in the right breast. Physical Findings: Nurse did not find any significant physical abnormalities on exam. US Breast RT Right complete breast ultrasound includes all four quadrants, the retroareolar region and axilla. Finding demonstrates a 3.7 x 0.8 x 1.5cm irregular, scarring, hypoechoic lesion at the posterior nipple/3 o'clock. Smaller than 04/19/19 where this measured 5.5 x 2.6 x 1.5cm. Currently appears phlegmonous with only minimal fluid. These results were verbally communicated with the patient and result sheet given to the patient on 12/21/19. ASSESSMENT: Benign, BI-RAD 2 RECOMMENDATION: Surgical consultation of the right breast. Called office with mammographic findings and has scheduled an appointment for the patient for 12/30/[address] Alexander. PRELIMINARY REPORT CALLED AND FAXED TO DR. ALEXANDER ON 12/22/19. Routine screening mammogram of both breasts in 9 months. Back on schedule for September 2020.
== END | disposition home or self-care (01) ==
LOC: LABWHC1 09:55
PROVIDERS: ATTEND Surgery
DX: N64.52 Nipple discharge (principal)

== ENCOUNTER → 2019-12-30 | Outpatient (CLI) | payer MEDICARE, OTHER ==
[2019-12-30 14:53] VITALS: BP 126/84; PULSE 112; RESP 18; TEMP 98.2
--- NOTE | 2019-12-30 14:55 | P.PN ---
Subjective Progress Note Date: 12/30/19 Principal diagnosis: right breast abscess 44-year-old white female who was initially seen in January 2019 with a right breast abscess. She had operative incision and drainage on 2 occasions the last being in April 2019 she has had the area packed until recently and then 2 weeks prior to 11-22-19 she noted a golf ball size swelling in the breast. Cultures in May 2019 revealed staph epidermidis with no PMNs seen. She also had rare anaerobic gram-positive bacilli. No anaerobes were isolated. She has not had any fever or chills. She has been draining from the site intermittently since she noted the swelling about one month ago. She was placed on an antibiotic regimen of Keflex and cultures were obtained. Cultures revealed a few gram-positive cocci as well as PMNs and where normal skin porfirio. She was also noted to have a few anaerobic gram-negative bacilli. She is not having any drainage at this time. She states it remains painful but has not changed in size. Ultrasound was performed which was consistent with a phlegmon which has decreased in size from 5.5 cm to 3.7 cm. Phlegmon with only minimal fluid. Patient did have bilateral mammogram September 2019 which was benign BIRADS 2 Family History: mother: breast cancer maternal grandmother: breast cancer Surgical history: 1. Cholecystectomy 2. Back surgery 3. I&D of breast abscess times two 4. Uterine ablation 5. Tubal ligation Medical history: 1. Asthma 2. Tachycardia 3. boarderline diabeitc ? Review of systems: HEENT: Negative Lungs: Asthma Heart: Tachycardia GI: Status post cholecystectomy : Uterine ablation Musculoskeletal: Prior BX surgery/arthritis Neurologic: Negative Psychologic: Negative. Hematologic: none ALLERGIES: morphine, Flagyl/caused hives Social history: Smoke: 6 cigarettes a day Alcohol: Negative Drugs: Negative Objective - Exam BMI 34.5 - Constitutional General appearance: Present: cooperative - EENT Eyes: Present: EOMI ENT: Present: hearing grossly normal - Neck Neck: Present: normal ROM - Respiratory Details: inspiritory wheezing - Cardiovascular Heart sounds: normal: S1, S2 - Integumentary Integumentary Comment(s): scar right breast from prior surgery, no drainage - Musculoskeletal Musculoskeletal: Present: gait normal - Psychiatric Psychiatric: Present: A&O x's 3, appropriate affect, intact judgment & insight - Additional findings Additional findings: Right breast Well-healed scar Evidence of drainage there is fullness behind the right nipple complex which is tender to palpation this is consistent with the changes on ultrasound with a phlegmon and some fluid present Assessment and Plan Assessment: Impression: 1. Phlegmon behind right nipple complex/was some fluid present this was reviewed with the radiologist and they feel that they can do an aspiration Plan: 1. Aspiration of phlegmon/fluid area behind right nipple complex 2. Repeat ultrasound in 1 week after aspiration to determine if this is resolving Cc: Dr. Osorio
== END | disposition home or self-care (01) ==
LOC: WWCWWP 14:25
PROVIDERS: ATTEND Surgery
DX: Z53.9 Procedure and treatment not carried out, unspecified reason (principal)